=== PATIENT | male | born 1930 | race Caucasian/White ===

== ENCOUNTER 2016-12-23 09:25 | Inpatient (IN) ==
[2016-12-18 14:32] LABS: Basophils # (Auto) 0 K/mcL (0.0-0.3); Basophils % (Auto) 0.5 % (0.0-2.0); Eosinophils # (Auto) 0.2 K/mcL (0.0-0.7); Granulocytes % (Auto) 56.9 % (38.0-78.0); Lymphocytes # (Auto) 2.2 K/mcL (1.5-4.8); Lymphocytes % (Auto) 30.4 % (15.5-49.0); Mean Cell Volume 94.3 fL (80.0-100.0); Mean Corpuscular HGB Conc 33.8 g/dL (31.0-36.0); Mean Corpuscular Hemoglobin 31.9 pg (26.0-34.0); Monocytes # (Auto) 0.7 K/mcL (0.1-0.9); Monocytes % (Auto) 9.2 % (1.0-12.0); Platelet Count 184 K/mcL (140-440); Red Cell Distribution Width 13.7 % (11.5-14.5)
[2016-12-18 14:49] LABS: Blood Urea Nitrogen 20 mg/dl (8-23)
[2016-12-18 15:57] LABS: Appearance,Urine CLEAR; Bilirubin,Urine NEG (NEG); Color,Urine YELLOW; Glucose,Urine (UA) NEGATIVE (NEG); Leukocyte Esterase,Urine NEG /uL (NEG); Nitrate,Urine NEG (NEG); Protein,Urine NEG (NEG); Specific Gravity,Urine 1.015 (1.000-1.035); Urine Blood NEG mg/dL (<0.03); Urobilinogen,Urine NEG (NEG)
[~2016-12-23 09:25] MED LIST: ACETAMINOPHEN 500 MG TABLET PO SCH; CELECOXIB 200 MG CAPSULE PO SCH; KETOROLAC 30 MG, ROPIVACAINE HCL/PF 49.5 ML, EPINEPHrine 0.5 MG, 0.9 % SODIUM CHLORIDE ... IJ SCH; PREGABALIN 75 MG CAPSULE PO SCH; ceFAZolin 1 GM VIAL IV SCH; oxyCODONE 10 MG TAB.ER.12H PO SCH
[2016-12-23] MEDS ORDERED: PROPOFOL 200 MG/20 ML VIAL IV ONE (11:00)
[2016-12-23] MEDS ORDERED: GLYCOPYRROLATE 0.2 MG/ML VIAL IV ONE (11:00)
[2016-12-23] MEDS ORDERED: PHENYLEPHRINE 10 MG/ML VIAL IV ONE (11:00)
[2016-12-23] MEDS ORDERED: MIDAZOLAM 2 MG/2 ML VIAL IV ONE (11:00)
[2016-12-23] MEDS ORDERED: DEXAMETHASONE 10 MG/ML VIAL IV ONE (11:00)
[2016-12-23] MEDS ORDERED: ONDANSETRON 4 MG/2 ML VIAL IV ONE (11:00)
[2016-12-23] MEDS ORDERED: ROPIVACAINE HCL/PF 20 ML VIAL IJ ONE (11:00)
[2016-12-23] MEDS ORDERED: fentaNYL 100 MCG/2 ML VIAL IV ONE (11:00)
[2016-12-23] MEDS ORDERED: LIDOCAINE HCL/PF 100 MG/5 ML SYRINGE IV ONE (11:00)
[2016-12-23] MEDS ORDERED: TRANEXAMIC ACID 1,000 MG/10 ML VIAL IV ONE ×2 (11:00→13:02)
[2016-12-23] MEDS ORDERED: GENTAMICIN SULFATE 800 MG/20 ML VIAL IR ONE (12:00)
[2016-12-23] MEDS ORDERED: FLUMAZENIL 0.1 MG/ML ML IV PRN (12:26)
[2016-12-23] MEDS ORDERED: HYDROmorphone 2 MG/ML SYRINGE IV PRN ×2 (12:26→13:02)
[2016-12-23] MEDS ORDERED: MEPERIDINE 25 MG/ML SYRINGE IV PRN (12:26)
[2016-12-23] MEDS ORDERED: BENZOCAINE/MENTHOL 1 LOZENGE PO PRN ×2 (12:26→13:02)
[2016-12-23] MEDS ORDERED: ePHEDrine 50 MG/ML AMPUL IV PRN (12:26)
[2016-12-23] MEDS ORDERED: METOPROLOL TARTRATE 5 MG/5 ML VIAL IV PRN (12:26)
[2016-12-23] MEDS ORDERED: IPRATROPIUM/ALBUTEROL 3 ML AMPUL.NEB NEB PRN (12:26)
[2016-12-23] MEDS ORDERED: METHOCARBAMOL 1,000 MG/10 ML VIAL IV PRN (12:26)
[2016-12-23] MEDS ORDERED: PROMETHAZINE 25 MG/ML VIAL IV PRN (12:26)
[2016-12-23] MEDS ORDERED: ATROPINE SULFATE 0.4 MG/ML VIAL IV PRN (12:26)
[2016-12-23] MEDS ORDERED: NALOXONE HCL 0.4 MG/ML VIAL IV PRN (12:26)
[2016-12-23] MEDS ORDERED: ONDANSETRON 4 MG/2 ML VIAL IV PRN ×2 (12:26→13:02)
[2016-12-23] MEDS ORDERED: diphenhydrAMINE 50 MG/ML VIAL IV PRN (12:26)
[2016-12-23] MEDS ORDERED: LACTATED RINGERS 1,000 ML IV SCH (12:30)
--- NOTE | 2016-12-23 12:54 | Brief Operative Note ---
Date of procedure: 12/23/16 Pre-op diagnosis: Left knee djd Post-op diagnosis: same Procedure: Left knee tka Grafts/Implants: Yes Anesthesia: GETA Complications: none Complications Description: 12/23/16 12:52 none Surgeon: Pankaj Fleming Consulting Hr Professional: Phan Yin Estimated blood loss (cc): 50 Tourniquet Time (Minutes): 54 Specimens Removed/Pathology: none sent Condition: stable Disposition: PACU
[2016-12-23] MEDS ORDERED: BISACODYL 10 MG SUPP.RECT PR PRN (13:02)
[2016-12-23] MEDS ORDERED: POLYETHYLENE GLYCOL 3350 17 GM PACKET PO PRN (13:02)
[2016-12-23] MEDS ORDERED: MAGNESIUM HYDROXIDE 30 ML ORAL.SUSP PO PRN (13:02)
[2016-12-23] MEDS ORDERED: FLEETS ADULT ENEMA PR PRN (13:02)
[2016-12-23] MEDS ORDERED: ACETAMINOPHEN 325 MG TABLET PO PRN (13:02)
[2016-12-23] MEDS ORDERED: HYDROcodone/APAP 10/325MG TABLET PO PRN (13:02)
[2016-12-23] MEDS ORDERED: TEMAZEPAM 15 MG CAPSULE PO PRN (13:02)
[2016-12-23] MEDS: fentaNYL 100 MCG/2 ML VIAL IV PRN ×2 (13:20→13:36)
--- NOTE | 2016-12-23 13:37 | XRay Report ---
CLINICAL INFORMATION: Postop total knee prostheses COMPARISON: None. FINDINGS: Total knee prostheses is anatomically aligned. No significant osseous abnormality. Small effusion seen in the patellofemoral joint and there is periarticular soft tissue swelling IMPRESSION: Negative Interpreted and Authenticated by: Alexei Segovia 12/23/16
[2016-12-23] MEDS: 0.9 % SODIUM CHLORIDE 10 ML SYRINGE IV SCH (14:14)
--- NOTE | 2016-12-23 14:51 | Operative Note ---
DATE OF OPERATION: 12/23/2016 PREOPERATIVE DIAGNOSIS: Left knee degenerative arthritis, severe. POSTOPERATIVE DIAGNOSIS: Left knee degenerative arthritis, severe. PROCEDURE: Left total knee arthroplasty using the GUY robot. SURGEON: Pankaj Fleming M.D. NUT GRADER: Phan Yin PA-C. ANESTHESIA: General LMA anesthesia. COMPLICATIONS: None. TOURNIQUET TIME: 54 minutes. ESTIMATED BLOOD LOSS: About 50 mL. IMPLANTS: A size 4 femur, size 4 tibial baseplate with a 36 mm patellar button and an 11 mm poly insert. DESCRIPTION OF PROCEDURE: The patient was brought to the operating room and put to sleep with general LMA anesthesia. Once asleep, the patient had the left leg sterilely prepped and draped in the usual sterile fashion. I exsanguinated the leg and inflated the tourniquet to 250 pounds of pressure and then made a midline incision. A mid vastus approach was performed. Once the mid vastus approach had been performed, I then identified the knee with severe arthritis throughout all three compartments. At this point, we then put pins above and below the knee. We registered thirty points in the knee, registered center of hip rotation, registered medial and lateral malleolus, registered the femoral and tibial pins. We balanced the knee and measured the knee prior to any cuts. He had about a negative 12 degree extension or 12 degree flexion contracture. At this point after balancing the total knee, both flexion and extension, we then brought in the robot. This was registered, and we made our distal femoral cuts, posterior chamfer cuts. We re-registered with the new saw blade and made our posterior, anterior and anterior chamfer cuts. The tibial cut was then made after registering the robot with the tibial pin. Once this was done, bony fragments were removed. We then removed the remnants of the meniscus and large spurs posteriorly and large loose bodies in the lateral recess. Spurs had all been removed. At this point, we then trialed the components. A size 4 tibial baseplate with rotation set by the robot, as well as a size 4 femur, 11 mm poly, had 0 degrees extension and anatomic alignment. We then prepared the patella. It measured a total thickness of 20 mm. This was cut to 14 mm and then placed a 36 mm patellar button. This tracked very nicely. Full range of motion. We irrigated thoroughly and cemented into place the above-mentioned sizes, 11 mm poly, 36 mm patellar button. We then placed the knee at 45 degrees until bleeding had stopped and the cement had dried. We then did one final irrigation. We then closed the mid vastus approach with a #1 Stratafix x2. We closed the skin with 2-0 Vicryl and eladia superficially. The patient tolerated this well. There was no complication. RBH:dorian Job ID: [id number] Doc ID: [id number] Pankaj Fleming MD
[2016-12-23] MEDS: 0.45 % SODIUM CHLORIDE 1,000 ML IV SCH (14:56)
[2016-12-23] MEDS: KETOROLAC 15 MG/ML VIAL IV SCH (18:27)
[2016-12-23] MEDS: SIMVASTATIN 20 MG TABLET PO SCH (19:37)
[2016-12-23] MEDS: ASPIRIN 325 MG ENTERIC COATED TABLET PO SCH (19:37)
[2016-12-23] MEDS: DOCUSATE SODIUM 100 MG CAPSULE PO SCH (19:37)
[2016-12-23] MEDS: SENNOSIDES 1 TABLET PO SCH (19:37)
[2016-12-24] MEDS: KETOROLAC 15 MG/ML VIAL IV SCH ×4 (00:30→18:10)
[2016-12-24] MEDS: 0.9 % SODIUM CHLORIDE 10 ML SYRINGE IV SCH ×4 (00:30→20:07)
[2016-12-24] MEDS: 0.45 % SODIUM CHLORIDE 1,000 ML IV SCH (03:21)
--- NOTE | 2016-12-24 07:31 | Orthopedic Progress Note ---
Subjective Patient information: Note initiated : 12/24/16 at 7:30 am Service Date, if different from initiated Date: [] Patient: Noel Dee 86 y/o M admitted on 12/23/16 for Left Total Knee Arhtroplasty with [employer] Robot. Chief Complaint: [Pt is stable this morning on post operative day 1 without any significant concerns or complaints. Patients vital signs have remained stable. Patients dressing is dry and exhibits a grossly intact neurovascular and neuromotor exam. Patients 10 point ROS is otherwise negative. ] Objective Vital signs: Vital Signs Temp Pulse Resp BP BP Pulse Ox 12/24/16 07:27 98.6 F 12 115/57 93 12/24/16 06:45 16 92 12/24/16 04:00 98.2 F 67 12 118/57 90 12/24/16 03:00 93 12/24/16 00:00 98.3 F 68 12 137/70 92 12/23/16 20:00 97.6 F 69 12 121/66 94 12/23/16 19:42 94 12/23/16 17:05 96 12/23/16 16:45 154/73 96 12/23/16 15:45 127/69 94 12/23/16 15:15 129/69 96 12/23/16 14:45 152/74 95 12/23/16 14:30 156/86 95 12/23/16 14:15 16 162/85 92 12/23/16 14:00 97.5 F 175/80 94 12/23/16 13:56 97.4 F 64 12 148/69 96 12/23/16 13:40 64 12 150/62 96 12/23/16 13:25 65 11 L 155/61 96 12/23/16 13:10 67 14 152/42 100 12/23/16 12:57 97.2 F 71 16 121/72 100 12/23/16 09:25 97.0 F 83 16 136/87 96 Intake and Output 12/23/16 12/24/16 12/24/16 21:59 05:59 13:59 Intake Total 240 / 240 500 / 500 Output Total 425 / 425 551 / 551 Balance -185 / -185 -51 / -51 Intake: Oral 240 / 240 500 / 500 Output: Void Amount 425 / 425 550 / 550 # of times incontinent of urine Other: Meal Dinner Percent of Meal Consumed 100% Feeding Ability Independent Weight 160 lb 8 oz Intake & Output: Intake & Output 12/23/16 12/24/16 12/24/16 21:59 05:59 13:59 Intake Total 240 / 240 500 / 500 Output Total 425 / 425 551 / 551 Balance -185 / -185 -51 / -51 Weight 160 lb 8 oz Intake: Oral 240 / 240 500 / 500 Output: Void Amount 425 / 425 550 / 550 # of times incontinent of urine Other: Meal Dinner Percent of Meal Consumed 100% Feeding Ability Independent Incision: Yes healing Incision clean and dry: Yes Dressing: Yes clean Weight bearing status: full Neurological exam IM: Yes motor sensory intact, Yes neurovascular intact Extremities exam IM: Yes Foot pink and warm, Yes neurovascular intact - Labs CBC & BMP: 12/24/16 04:45 12/18/16 12:19 Labs: Orthopedic Labs 12/18/16 12:19 PT 12.8 INR 0.9 APTT 31 12/24/16 12/18/16 04:45 12:19 Hgb 14.6 Hct 33.3 L 43.4
--- NOTE | 2016-12-24 07:34 | Discharge Summary ---
Ortho Discharge - TKA - Patient Instructions Diet: Regular Diet Activity: activity as tolerated, weight bearing as tolerated Total Knee Protocol: For Total Knee: Start ROM TORI with stationary bike or rocking chair. Work on gaining full extension of knee. Posterior dislocation precautions provided. Hip abductor strengthening and gait training instructions provided. Apply Cryocuff as instructed. Dressing Care: May shower in 2 days, Aquacel Ag - leave on for 5 days Patient Education: Total Knee Replacement (DC) Additional Instructions: CPM for home use - Follow Up Plan Follow Up Appointments: Phan Yin PA-C [Physician Religious Education Coordinator] - 01/07/17 10:50 am () Disposition: Home, Self-Care Prognosis: Good Rehab Potential: Good I certify that the patient requires SNF services: No Overall status at discharge: patient is progressing back to baseline - Orders For Discharge Prescriptions: Aspirin [Ecotrin] 325 mg PO BID #60 tab.ec Docusate Sodium [Colace] 100 mg PO BID #60 cap HYDROcodone/APAP 10/325MG [[place] 10/325Mg] 1 - 2 tab PO Q4HP PRN #75 tab PRN Reason: Pain
[2016-12-24] MEDS: CALCIUM (OYSTER SHELL) 500 MG TABLET PO SCH (08:29)
[2016-12-24] MEDS: ASPIRIN 325 MG ENTERIC COATED TABLET PO SCH ×2 (08:29→20:06)
[2016-12-24] MEDS: LISINOPRIL 10 MG TABLET PO SCH (08:29)
[2016-12-24] MEDS: DOCUSATE SODIUM 100 MG CAPSULE PO SCH ×2 (08:29→21:07)
[2016-12-24] MEDS: VITAMIN D3 1,000 UNIT TABLET PO SCH (08:30)
[2016-12-24] MEDS: GLUCOSAMINE HCL 1500 MG PO SCH (08:30)
[2016-12-24] MEDS: MULTIVIT,THER IRON,CA,FA & MIN 1 TABLET PO SCH (08:30)
[2016-12-24] MEDS: HYDROCHLOROTHIAZIDE 12.5 MG CAPSULE PO SCH (08:30)
[2016-12-24] MEDS: SIMVASTATIN 20 MG TABLET PO SCH (20:06)
[2016-12-24] MEDS: SENNOSIDES 1 TABLET PO SCH (20:07)
[2016-12-25] MEDS: KETOROLAC 15 MG/ML VIAL IV SCH ×3 (00:11→11:54)
[2016-12-25] MEDS: 0.9 % SODIUM CHLORIDE 10 ML SYRINGE IV SCH (06:44)
[2016-12-25] MEDS: MULTIVIT,THER IRON,CA,FA & MIN 1 TABLET PO SCH (08:16)
[2016-12-25] MEDS: HYDROCHLOROTHIAZIDE 12.5 MG CAPSULE PO SCH (08:16)
[2016-12-25] MEDS: DOCUSATE SODIUM 100 MG CAPSULE PO SCH (08:16)
[2016-12-25] MEDS: ASPIRIN 325 MG ENTERIC COATED TABLET PO SCH (08:16)
[2016-12-25] MEDS: VITAMIN D3 1,000 UNIT TABLET PO SCH (08:16)
[2016-12-25] MEDS: LISINOPRIL 10 MG TABLET PO SCH (08:16)
[2016-12-25] MEDS: CALCIUM (OYSTER SHELL) 500 MG TABLET PO SCH (08:17)
[2016-12-25] MEDS: GLUCOSAMINE HCL 1500 MG PO SCH (08:24)
[2016-12-25] MEDS ORDERED: ASPIRIN 81 MG TAB.CHEW PO SCH (09:00)
== END 2016-12-25 13:25 | disposition home or self-care (01) | DRG 470 ==
LOC: MEDSUR 09:25
PROVIDERS: ADMIT Orthopaedic Surgery; ATTEND Orthopaedic Surgery

== ENCOUNTER 2017-04-28 04:32 | Inpatient (IN) ==
[2017-04-22 18:42] LABS: Appearance,Urine CLEAR; Bilirubin,Urine NEG (NEG); Color,Urine YELLOW; Glucose,Urine (UA) NEGATIVE (NEG); Leukocyte Esterase,Urine NEG /uL (NEG); Protein,Urine NEG (NEG); Specific Gravity,Urine 1.019 (1.000-1.035); Urine Blood NEG mg/dL (<0.03); Urobilinogen,Urine NEG (NEG)
[2017-04-22 19:10] LABS: Basophils # (Auto) 0 K/mcL (0.0-0.3); Basophils % (Auto) 0.5 % (0.0-2.0); Eosinophils # (Auto) 0.3 K/mcL (0.0-0.7); Eosinophils % (Auto) 4.3 % (0.0-7.0); Granulocytes % (Auto) 56.1 % (38.0-78.0); Lymphocytes # (Auto) 2.2 K/mcL (1.5-4.8); Lymphocytes % (Auto) 32.3 % (15.5-49.0); Mean Cell Volume 92.8 fL (80.0-100.0); Mean Corpuscular HGB Conc 34.3 g/dL (31.0-36.0); Mean Corpuscular Hemoglobin 31.9 pg (26.0-34.0); Monocytes # (Auto) 0.5 K/mcL (0.1-0.9); Monocytes % (Auto) 6.8 % (1.0-12.0); Platelet Count 184 K/mcL (140-440); RBC 4.67 M/mcL (4.50-5.90); Red Cell Distribution Width 15.2 % (11.5-14.5)
[2017-04-22 19:41] LABS: Blood Urea Nitrogen 21 mg/dl (8-23)
[2017-04-28] MEDS ORDERED: CELECOXIB 200 MG CAPSULE PO SCH (05:00)
[2017-04-28] MEDS ORDERED: ACETAMINOPHEN 500 MG TABLET PO SCH (05:00)
[2017-04-28] MEDS ORDERED: PREGABALIN 75 MG CAPSULE PO SCH (05:00)
[2017-04-28] MEDS ORDERED: oxyCODONE 10 MG TAB.ER.12H PO SCH (05:00)
[2017-04-28] MEDS ORDERED: ceFAZolin 1 GM VIAL IV SCH (05:00)
[2017-04-28] MEDS ORDERED: KETOROLAC 30 MG, ROPIVACAINE HCL/PF 49.5 ML, EPINEPHrine 0.5 MG, 0.9 % SODIUM CHLORIDE ... IJ SCH (06:30)
[2017-04-28] MEDS ORDERED: MIDAZOLAM 2 MG/2 ML VIAL IV ONE (07:45)
[2017-04-28] MEDS ORDERED: TRANEXAMIC ACID 1,000 MG/10 ML VIAL IV ONE ×2 (07:45→09:06)
[2017-04-28] MEDS ORDERED: ROPIVACAINE HCL/PF 20 ML VIAL IJ ONE (07:45)
[2017-04-28] MEDS ORDERED: LIDOCAINE HCL/PF 100 MG/5 ML SYRINGE IV ONE (07:45)
[2017-04-28] MEDS ORDERED: DEXAMETHASONE 10 MG/ML VIAL IV ONE (07:45)
[2017-04-28] MEDS ORDERED: ePHEDrine 50 MG/ML AMPUL IV ONE (07:45)
[2017-04-28] MEDS ORDERED: ONDANSETRON 4 MG/2 ML VIAL IV ONE (07:45)
[2017-04-28] MEDS ORDERED: PROPOFOL 200 MG/20 ML VIAL IV ONE (07:45)
[2017-04-28] MEDS ORDERED: GENTAMICIN SULFATE 800 MG/20 ML VIAL IR ONE (08:34)
[2017-04-28] MEDS ORDERED: BENZOCAINE/MENTHOL 1 LOZENGE PO PRN ×2 (08:38→09:06)
[2017-04-28] MEDS ORDERED: MEPERIDINE 25 MG/ML SYRINGE IV PRN (08:38)
[2017-04-28] MEDS ORDERED: FLUMAZENIL 0.1 MG/ML ML IV PRN (08:38)
[2017-04-28] MEDS ORDERED: ONDANSETRON 4 MG/2 ML VIAL IV PRN ×2 (08:38→09:06)
[2017-04-28] MEDS ORDERED: NALOXONE HCL 0.4 MG/ML VIAL IV PRN (08:38)
[2017-04-28] MEDS ORDERED: fentaNYL 100 MCG/2 ML VIAL IV PRN (08:38)
[2017-04-28] MEDS ORDERED: LACTATED RINGERS 250 ML IV PRN (08:38)
[2017-04-28] MEDS ORDERED: PROMETHAZINE 25 MG/ML VIAL IV PRN (08:38)
[2017-04-28] MEDS ORDERED: diphenhydrAMINE 50 MG/ML VIAL IV PRN (08:38)
[2017-04-28] MEDS ORDERED: IPRATROPIUM/ALBUTEROL 3 ML AMPUL.NEB NEB PRN (08:38)
[2017-04-28] MEDS ORDERED: LACTATED RINGERS 1,000 ML IV SCH (08:45)
[2017-04-28] MEDS ORDERED: ACETAMINOPHEN 325 MG TABLET PO PRN (09:06)
[2017-04-28] MEDS ORDERED: TEMAZEPAM 15 MG CAPSULE PO PRN (09:06)
[2017-04-28] MEDS ORDERED: BISACODYL 10 MG SUPP.RECT PR PRN (09:06)
[2017-04-28] MEDS ORDERED: FLEETS ADULT ENEMA PR PRN (09:06)
[2017-04-28] MEDS ORDERED: MAGNESIUM HYDROXIDE 30 ML ORAL.SUSP PO PRN (09:06)
[2017-04-28] MEDS ORDERED: HYDROmorphone 2 MG/ML VIAL IV PRN (09:06)
[2017-04-28] MEDS ORDERED: POLYETHYLENE GLYCOL 3350 17 GM PACKET PO PRN (09:06)
[2017-04-28] MEDS ORDERED: HYDROcodone/APAP 10/325MG TABLET PO PRN (09:06)
--- NOTE | 2017-04-28 09:06 | Brief Operative Note ---
Date of procedure: 04/28/17 Pre-op diagnosis: right knee djd Post-op diagnosis: same Procedure: right tka with robotics Grafts/Implants: Yes Anesthesia: GETA Findings: none Surgeon: Pankaj Fleming Strainer Cleaner: Phan Yin Tourniquet Time (Minutes): 20 Specimens Removed/Pathology: none sent Condition: stable Disposition: PACU
--- NOTE | 2017-04-28 09:52 | XRay Report ---
HISTORY: Reason for Exam:Post-Op Total Knee FINDINGS: There is a well positioned total knee prosthesis. No fracture is present. There is a moderate size exostosis arising from the medial femoral epicondyle. Large dystrophic soft tissue calcifications are again seen in the popliteal fossa. These have enlarged since 05/30/16. Largest measures 6.2 cm in length. IMPRESSION: Well-positioned knee prosthesis Interpreted and Authenticated by: Agustin Chavez 04/28/17
[2017-04-28] MEDS: 0.45 % SODIUM CHLORIDE 1,000 ML IV SCH ×2 (11:38→19:30)
[2017-04-28] MEDS: KETOROLAC 15 MG/ML VIAL IV SCH ×3 (14:38→23:55)
--- NOTE | 2017-04-28 16:22 | Operative Note ---
DATE OF OPERATION: 04/28/2017 PREOPERATIVE DIAGNOSIS: Right knee degenerative arthritis. POSTOPERATIVE DIAGNOSIS: Right knee degenerative arthritis. This was so severe of arthritis with loose bodies. PROCEDURE: Right total knee arthroplasty using the [employer] robot. SURGEON: Paknaj Fleming M.D. PAYABLE REPRESENTATIVE: Phan Yin PA-C. ANESTHESIA: General LMA anesthesia. COMPLICATIONS: None. DESCRIPTION OF PROCEDURE: The patient was brought to the operating room and put to sleep with general LMA anesthesia. Once asleep, the patient had the right leg sterilely prepped and draped in the usual sterile fashion. Timeout performed and confirmed this as the operative site. Once done, preop antibiotics had been given. Tranexamic acid was given. We made a midline incision, a midvastus approach performed. This showed so severe of arthritis. There were grooves in the lateral femoral condyle and the patella. The patella had been thinned to about 13 mm. At this point, we proceeded with a total knee arthroplasty. Two pins above and below the knee. We registered the hip center of rotation, medial and lateral malleoli, and thirty points on the femur and the tibia. Intra-articular pins were registered. Once done, we then brought in the robot and made the cuts according to the balancing of the knee. Once all these cuts were done, bony fragments were removed, meniscus remnants removed, and spurs posteriorly removed. We punched into place, setting rotation of the tibial component. The femoral component lateralized as far as we could and then prepared the patella. The patella measured 13 to 14 mm at its thinnest. We cut this to the very minimum which was 14 mm and then resurfaced this with a 36 mm patellar button. All these components were cemented into place. Excess cement was removed. We rebalanced the knee so the patient could gain full extension as he had a small flexion contracture starting the case. We irrigated thoroughly. Once perfectly balanced, we closed the midvastus approach with #1 Stratafix x2 sutures. We closed the skin with 2-0 Vicryl and adhesive closure. The patient tolerated this well. Tourniquet time was approximately 45 minutes. RBH:dorian Job ID: [id number] Doc ID: [id number] Pankaj Fleming MD
[2017-04-28] MEDS: ceFAZolin 1 GM VIAL IV SCH (18:47)
[2017-04-28] MEDS: FERROUS SULFATE 325 MG TABLET PO SCH (18:57)
[2017-04-28] MEDS: 0.9 % SODIUM CHLORIDE 10 ML SYRINGE IV SCH ×2 (19:01→23:56)
[2017-04-28] MEDS: ASPIRIN 325 MG ENTERIC COATED TABLET PO SCH (20:43)
[2017-04-28] MEDS: DOCUSATE SODIUM 100 MG CAPSULE PO SCH (20:45)
[2017-04-28] MEDS ORDERED: SENNOSIDES 1 TABLET PO SCH (21:00)
[2017-04-28] MEDS ORDERED: SIMVASTATIN 20 MG TABLET PO SCH (21:00)
[2017-04-29] MEDS ORDERED: ceFAZolin 1 GM VIAL ONE (02:28)
[2017-04-29] MEDS: ceFAZolin 1 GM VIAL IV SCH (02:53)
[2017-04-29] MEDS: 0.9 % SODIUM CHLORIDE 10 ML SYRINGE IV SCH (05:58)
[2017-04-29] MEDS: KETOROLAC 15 MG/ML VIAL IV SCH ×2 (05:58→14:53)
--- NOTE | 2017-04-29 07:35 | Orthopedic Progress Note ---
Subjective Patient information: Note initiated : 04/29/17 at 7:34 am Service Date, if different from initiated Date: [] Patient: Noel Dee 86 y/o M admitted on 04/28/17 for Right Total Knee Arthroplasty. Chief Complaint: [Pt is stable this morning on post operative day 1 without any significant concerns or complaints. Patients vital signs have remained stable. Patients dressing is dry and is grossly instact from a neurovascular and motor standpoint. Patients 10 point ROS is otherwise negative. ] Objective Vital signs: Vital Signs Temp Pulse Resp BP Pulse Ox 04/29/17 04:00 98.1 F 58 L 18 123/65 92 04/29/17 00:00 98.4 F 66 18 113/62 96 04/28/17 20:00 97.6 F 88 18 110/69 94 04/28/17 15:34 97.8 F 16 135/67 95 04/28/17 13:07 97 04/28/17 11:52 138/63 94 04/28/17 11:23 145/74 95 04/28/17 10:53 154/74 98 04/28/17 10:38 159/77 99 04/28/17 10:24 126/71 99 04/28/17 10:08 150/78 95 04/28/17 10:00 96.6 F L 57 L 10 L 156/61 98 04/28/17 09:52 96.8 F L 67 17 125/60 99 04/28/17 09:37 97.0 F 64 20 126/63 96 04/28/17 09:32 76 14 136/71 2 L 04/28/17 09:27 80 16 142/73 99 04/28/17 09:22 97.3 F 78 16 135/69 98 Intake and Output 04/28/17 04/29/17 04/29/17 21:59 05:59 13:59 Intake Total 1152 / 1152 220 / 220 Output Total 475 / 475 400 / 400 Balance 677 / 677 -180 / -180 Intake: IV 912 / 912 Sodium Chloride 0.45% 1,000 ml 912 / 912 @ 100 mls/hr IV .Q10H [facility] Rx#: [id number] Oral 240 / 240 220 / 220 Output: Void Amount 475 / 475 400 / 400 Other: Meal Dinner Percent of Meal Consumed 75% Feeding Ability Independent Weight 159 lb 8 oz Intake & Output: Intake & Output 04/28/17 04/29/17 04/29/17 21:59 05:59 13:59 Intake Total 1152 / 1152 220 / 220 Output Total 475 / 475 400 / 400 Balance 677 / 677 -180 / -180 Weight 159 lb 8 oz Intake: IV 912 / 912 Sodium Chloride 0.45% 1,000 ml 912 / 912 @ 100 mls/hr IV .Q10H [facility] Rx#: [id number] Oral 240 / 240 220 / 220 Output: Void Amount 475 / 475 400 / 400 Other: Meal Dinner Percent of Meal Consumed 75% Feeding Ability Independent Incision: Yes healing Incision clean and dry: Yes Dressing: Yes clean, Yes dry Weight bearing status: full Neurological exam IM: Yes motor sensory intact, Yes neurovascular intact Extremities exam IM: Yes Foot pink and warm, Yes neurovascular intact - Labs CBC & BMP: 04/29/17 04:54 04/22/17 16:40 Labs: Orthopedic Labs 04/22/17 16:40 PT 12.9 INR 1.0 APTT 31 04/29/17 04/22/17 04:54 16:40 Hgb 14.9 Hct 33.9 L 43.4 Assessment and Plan (1) Hx of total knee arthroplasty The patient has been educated regarding dressing care, Physical Therapy recommendations, home exercises, restrictions, and follow up appointments. The patient has had all necessary DME prescribed. The patient has remained stable during their hospital course. The patient was discharge with a stable exam. Status: Acute
--- NOTE | 2017-04-29 07:38 | Discharge Summary ---
Ortho Discharge - TKA - Patient Instructions Diet: Regular Diet Activity: activity as tolerated, weight bearing as tolerated Total Knee Protocol: For Total Knee: Start ROM TORI with stationary bike or rocking chair. Work on gaining full extension of knee. Posterior dislocation precautions provided. Hip abductor strengthening and gait training instructions provided. Apply Cryocuff as instructed. Dressing Care: May shower in 2 days Patient Education: Total Knee Replacement (DC) Additional Instructions: CMP for home use. - Problem Maintenance (1) Hx of total knee arthroplasty Status: Acute - Follow Up Plan Follow Up Appointments: Phan Yin PA-C [Physician Barrel Assembler Helper] - 05/13/17 8:40 am Disposition: Home, Self-Care Prognosis: Good Rehab Potential: Good I certify that the patient requires SNF services: No Overall status at discharge: patient is progressing back to baseline - Orders For Discharge Prescriptions: Aspirin [Ecotrin] 325 mg PO BID #60 tab.ec Docusate Sodium [Colace] 100 mg PO BID #60 cap HYDROcodone/APAP 10/325MG [[place] 10-325Mg] 1 - 2 tab PO Q4HP PRN #75 tab PRN Reason: Pain Level 3-6
[2017-04-29] MEDS ORDERED: LISINOPRIL 10 MG TABLET PO SCH (09:00)
[2017-04-29] MEDS ORDERED: HYDROCHLOROTHIAZIDE 12.5 MG CAPSULE PO SCH (09:00)
[2017-04-29] MEDS ORDERED: CALCIUM (OYSTER SHELL) 500 MG TABLET PO SCH (09:00)
[2017-04-29] MEDS ORDERED: MULTIVIT,THER IRON,CA,FA & MIN 1 TABLET PO SCH (09:00)
[2017-04-29] MEDS ORDERED: VITAMIN D3 1,000 UNIT TABLET PO SCH (09:00)
[2017-04-29] MEDS: ASPIRIN 325 MG ENTERIC COATED TABLET PO SCH (09:11)
[2017-04-29] MEDS: DOCUSATE SODIUM 100 MG CAPSULE PO SCH (09:11)
[2017-04-29] MEDS: FERROUS SULFATE 325 MG TABLET PO SCH (09:11)
[2017-04-30] MEDS ORDERED: ASPIRIN 81 MG TAB.CHEW PO SCH (09:00)
== END 2017-04-29 15:15 | disposition home or self-care (01) | DRG 470 ==
LOC: MEDSUROUT 04:32 → MEDSUR 04:32 → EDSTATUS 07:30
PROVIDERS: ADMIT Orthopaedic Surgery; ATTEND Orthopaedic Surgery

== ENCOUNTER 2017-07-06 15:09 | Inpatient (IN) ==
--- NOTE | 2017-07-06 15:45 | Emergency Department Note ---
Fall HPI - General Chief Complaint: Extremity Injury, Lower Stated Complaint: fall, R leg pain, possible deform Time Seen by Provider: 07/06/17 15:32 Source: patient Mode of arrival: EMS - History of Present Illness HPI Narrative: Patient was on the driveway he states he was backing up and fell he just had a knee replacement on the right one month ago by Dr. Lara on 04/28 complain about pain superior to that the knee replacement. Brought in by ambulance as patient is complaining about pain to the right distal femur no pain in the hip pulses are 2+ equal strong normal sensation pain is rated initially as a 10/10 but is not requesting anything for pain at this time as he was given some fentanyl in the ambulance his pulse is 77 the blood pressure is 166 systolically - Related Data Home Medications Medication Instructions Recorded Confirmed calcium citrate 200 mg (950 mg) 500 mg PO QDAY tab 04/25/16 07/06/17 tablet cholecalciferol (vitamin D3) 1,000 1,000 unit PO DAILY 04/25/16 07/06/17 unit capsule multivitamin tablet 1 tab-cap PO QDAY 04/25/16 07/06/17 Aspirin 81 mg PO MOWEFR@0900 tab 05/30/16 07/06/17 enzalutamide 40 mg capsule 80 mg PO QDAY cap 08/12/16 07/06/17 Ferrous Sulfate 325 mg PO BIDCC 04/22/17 07/06/17 Previous Rx's Medication Instructions Recorded hydrochlorothiazide 12.5 mg tablet 12.5 mg PO QDAY 90 Days #90 tab 08/12/16 lisinopril 10 mg tablet 10 mg PO QDAY #90 tab 04/08/17 HYDROcodone/APAP 10/325MG [[place] 1 - 2 tab PO Q4HP PRN #75 tab 04/29/17 10-325Mg] simvastatin 20 mg tablet 20 mg PO QPM #90 tab 05/27/17 Allergies Allergy/AdvReac Type Severity Reaction Status Date / Time Amoxicillin AdvReac Mild Rash Verified 07/06/17 15:14 Review of Systems All systems ED: reviewed and negative except as stated. Musculoskeletal: Reports: as per HPI, other (PAINInto the right femur) Fall PMH - Past Medical History Medical history: Reports: hyperlipidemia, hypertension Surgical history ED: Reports: other (Prostate surgery lateral knee replacements) Family history: Reports: no significant family history - Social History smoking status: Former smoker Alcohol use: Reports: Occasionally Drug use: Reports: none Physical Exam Limitations: no limitations General appearance: alert Head: atraumatic Eye: Present: normal appearance. Absent: PERRL, EOMI ENT: normal exam, normal oropharynx Neck: Present: normal inspection, full ROM. Absent: trachea midline Chest: Present: normal inspection, symmetric chest wall rise. Absent: tenderness Respiratory: Present: normal lung sounds bilaterally. Absent: respiratory distress, wheezes, stridor Cardiovascular: Present: regular rate, normal rhythm. Absent: bradycardia, tachycardia Abdominal: Present: soft, distention. Absent: tenderness, guarding Extremities: Present: normal inspection Hip/Pelvis: Present: normal inspection, full ROM. Absent: tenderness Upper leg: Present: tenderness, swelling. Absent: full ROM Knee: Present: other (Total knee 1 month ago) Lower leg: Present: normal inspection, full ROM. Absent: tenderness Ankle: Present: normal inspection, full ROM. Absent: tenderness Back: Present: full ROM Neurological: Present: alert, oriented X3, CN II-XII intact Psychiatric: Present: normal affect, normal mood Course Vital Signs Temperature 98.4 F 07/06/17 15:10 Pulse Rate 77 07/06/17 15:10 Respiratory Rate 16 07/06/17 15:10 Blood Pressure 164/88 07/06/17 15:10 Pulse Oximetry (%) 94 07/06/17 15:10 Temperature 98.4 F 07/06/17 15:10 Pulse Rate 81 07/06/17 16:41 Respiratory Rate 20 07/06/17 16:21 Blood Pressure 139/99 07/06/17 16:41 Pulse Oximetry (%) 93 07/06/17 16:41 Fall - [facility] Narrative Medical decision making narrative: Reveal a spiral fracture of the distal femur 2+ equal and strong Marco orthopedic doctor beverage inspection machine tender has been contacted he is reviewing the x-rays at this time Dr. Lara would like to have the patient admitted to hospice has been contacted Dr. Perez will evaluate the patient . pt to be admitted. - Lab Data Result diagrams: 07/06/17 15:23 07/06/17 15:23 Disposition Pt seen by WATCH CASER/PA only: No Clinical Impression: Fracture of femur, distal, closed Disposition: Xfer As Inpt ([facility]) Condition: Fair Referrals: Jamal Gudino PA-C [Primary Care Provider] -
[2017-07-06] MEDS ORDERED: HYDROmorphone 2 MG/ML VIAL IV PRN (16:33)
--- NOTE | 2017-07-06 17:34 | Internal Med History&Physical ---
Medical - H&P: HPI Patient information: Note initiated : 07/06/17 at 5:30 pm Service Date, if different from initiated Date: [] Patient: Noel Dee 86 y/o M admitted on for fall, R leg pain, possible deform. Chief Complaint: [] History of present illness: Mr. Dee is a 86 year old Male with h/o hypertension, hyperlipidemia, prostate cancer. Patient had recent right knee replacement surgery. While working in his yard today the patient fell down twice, injured his lower left leg, he was therefore brought to the hospital for further evaluation. He notes that he scraped his forehead right side of his body. He also has significant pain on the right thigh. The patient denies any headache, palpitations chest pain shortness of breath dizziness or any other prodromal symptoms before the fall. He notes this was a mechanical fall. X-ray in the ER shows patient has femur shaft fracture. Orthopedics has been consulted however they are not available to admit the patient and therefore the patient is being admitted to the medicine service. The patient has no acute active medical issues. Management of hospital aware that management of acute traumatic femur shaft fracture is not in the scope of practice of Internal Medicine trained physicians. The patient notes that he is fairly active after his knee surgery and has been participating in physical therapy, he denies any chest pain shortness of breath with activity. He had the knee surgery done recently 2 months ago without any significant complications. The chest x-ray done shows poor inspiratory effort but no acute infiltrates. No cardiomegaly. EKG shows sinus rhythm, left axis deviation left anterior hemiblock as well as old septal PA. This is unchanged from the EKG done previously. Labs reviewed, unremarkable. Patient was able to climb 15 stairs today at a temple without any chest pain or shortness of breath, he is also participating in his PT exercises without any issues. He denies any history of stroke, myocardial infarction, diabetes, renal failure, or congestive heart failure. 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, bilateral (Acute) Malignant neoplasm skin of ear (Chronic) Vitamin D deficiency (Chronic) Prostate cancer (Chronic) Pre-diabetes (Chronic) Macular degeneration (Chronic) Insomnia (Chronic) Hypertension (Chronic) Hyperlipidemia (Chronic) Basal cell carcinoma of skin (Chronic) Surgical history: Past Surgical History History of prostate surgery (Chronic) H/O hernia repair (Chronic) Pertinent family history: Family History Mother Genetic carrier of other disease Diabetes mellitus Brother Diabetes mellitus Medical - H&P: Meds Home Medications Medication Instructions Recorded Confirmed Type calcium citrate 200 mg (950 mg) 500 mg PO QDAY tab 04/25/16 07/06/17 History tablet cholecalciferol (vitamin D3) 1,000 1,000 unit PO DAILY 04/25/16 07/06/17 History unit capsule multivitamin tablet 1 tab-cap PO QDAY 04/25/16 07/06/17 History Aspirin 81 mg PO MOWEFR@0900 tab 05/30/16 07/06/17 History enzalutamide 40 mg capsule 80 mg PO QDAY cap 08/12/16 07/06/17 History hydrochlorothiazide 12.5 mg tablet 12.5 mg PO QDAY 90 Days #90 tab 08/12/16 Rx lisinopril 10 mg tablet 10 mg PO QDAY #90 tab 04/08/17 07/06/17 Rx Ferrous Sulfate 325 mg PO BIDCC 04/22/17 07/06/17 History HYDROcodone/APAP 10/325MG [[place] 1 - 2 tab PO Q4HP PRN #75 tab 04/29/17 Rx 10-325Mg] simvastatin 20 mg tablet 20 mg PO QPM #90 tab 05/27/17 07/06/17 Rx Allergies Allergy/AdvReac Type Severity Reaction Status Date / Time Amoxicillin AdvReac Mild Rash Verified 07/06/17 15:14 Medical - H&P: Exam - Constitutional Vitals: Temp Pulse Resp BP Pulse Ox 98.4 F 81 20 139/99 93 07/06/17 15:10 07/06/17 16:41 07/06/17 16:21 07/06/17 16:41 07/06/17 16:41 Exam: GENERAL: The patient is a well-developed, well-nourished in no apparent distress. Is alert and oriented x3. VITAL SIGNS: Reviewed and as noted elsewhere. HEENT: Head is normocephalic , has some abrasion on the right eye brow region. Extraocular muscles are intact. Pupils are equal, round, and reactive to light. Nares appeared normal. Mouth appears any without lesions. Mucous membranes are moist. NECK: Normal to inspection, Supple, No lymphadenopathy or thyromegaly. LUNGS: Air entry equal on both sides, no wheezing, crackles or rhonchi noted. No accessory muscles of respiration HEART: Regular rate and rhythm normal, S1 and S2 heard, no Gallop, S3 or Rub Noted, No Gross murmur heard. ABDOMEN: Soft, nontender, and nondistended. Positive bowel sounds. No hepatosplenomegaly was noted. EXTREMITIES: No cyanosis, clubbing, rash, lesions or edema. Right leg immobilized, good distal pulses, patient able to move toes, NEUROLOGIC: Cranial nerves II through XII are grossly intact. Motor and Sensory System Grossly Intact PSYCHIATRIC: Normal affect, Normal Mood. Appropriate Behavior. SKIN: No ulceration or wounds noted, No jaundice, No rash noted. Medical - H&P: Reslt - Labs CBC & Chem 7: 07/06/17 15:23 07/06/17 15:23 Medical - H&P: A/P - Narrative A/P Narrative: A/P Distal Femur fracture: After mechanical fall, management as per ortho, DR Fleming has been consulted and will be reviewing the patient case Pre op evaluation.:RCRI 1 (no h/o CAD but EKG suggestive of old asmi) , but mets is 4 (able to , pt will be moderate risk for surgery due to age, no reversible risk factors, no acute contraindication for surgery) Fall did not seem significant, pt has no headache or visual changes, will just monitor for now, if any AZURE DEVELOPER changes consider Head CT, at this time pt exam is non focal, and pt has no complaints. HTN bp elevated, hold home bp meds pre op, resume post op, prn clonidine for now HLD continue statin Prostate cancer: Continue home meds, DVT hep sq Diet regular Full code. Social History - Tobacco smoking status: Former smoker - Alcohol alcohol intake frequency: holiday/special occasion only - Substance use substance use type: does not use
[2017-07-06] MEDS ORDERED: LIDOCAINE JEL 2% 1 TUBE 30GM TOPICAL ONE (18:08)
--- NOTE | 2017-07-06 18:35 | XRay Report ---
CLINICAL INFORMATION: Chest pain COMPARISON: None. FINDINGS: The heart is mildly enlarged. Mediastinum and pulmonary vessels are normal. There is minor scarring or atelectasis in both lung bases. No bal infiltrates or effusions. Bones and soft tissues are normal IMPRESSION: Mild cardiomegaly, but no CHF or other significant acute process Interpreted and Authenticated by: Alexei Segovia 07/06/17
[2017-07-06] MEDS ORDERED: cloNIDine HCL 0.1 MG TABLET PO PRN (18:36)
[2017-07-06] MEDS ORDERED: ACETAMINOPHEN 325 MG TABLET PO PRN (18:36)
[2017-07-06] MEDS ORDERED: ONDANSETRON 4 MG/2 ML VIAL IV PRN (18:36)
[2017-07-06] MEDS ORDERED: oxyCODONE/APAP 5/325MG TABLET PO PRN (18:36)
[2017-07-06] MEDS ORDERED: NALOXONE HCL 0.4 MG/ML VIAL IV PRN (18:36)
--- NOTE | 2017-07-06 18:40 | XRay Report ---
CLINICAL INFORMATION: Trauma COMPARISON: None. FINDINGS: There is a minimally comminuted spiral fracture of the distal femoral diaphysis. Distal fragment is displaced one shaft width in a medial direction. Total knee prostheses is anatomically aligned without loosening or infection. There are 3-4 large calcifications overlying the superior popliteal fossa ranging up to 3.8 cm IMPRESSION: Displaced spiral fracture distal femoral diaphysis Interpreted and Authenticated by: Alexei Segovia 07/06/17
[2017-07-06] MEDS: LACTATED RINGERS 1,000 ML IV SCH (18:46)
[2017-07-06 19:35] LABS: Basophils # (Auto) 0 K/mcL (0.0-0.3); Basophils % (Auto) 0.6 % (0.0-2.0); Eosinophils # (Auto) 0.2 K/mcL (0.0-0.7); Eosinophils % (Auto) 2.5 % (0.0-7.0); Granulocytes % (Auto) 53.2 % (38.0-78.0); Lymphocytes # (Auto) 2.6 K/mcL (1.5-4.8); Lymphocytes % (Auto) 36.4 % (15.5-49.0); Mean Cell Volume 94.3 fL (80.0-100.0); Mean Corpuscular HGB Conc 33.6 g/dL (31.0-36.0); Mean Corpuscular Hemoglobin 31.6 pg (26.0-34.0); Monocytes # (Auto) 0.5 K/mcL (0.1-0.9); Monocytes % (Auto) 7.3 % (1.0-12.0); Platelet Count 165 K/mcL (140-440); RBC 4.33 M/mcL (4.50-5.90); Red Cell Distribution Width 14.8 % (11.5-14.5)
[2017-07-06 19:36] LABS: ALT/SGPT 11 U/l (0-40); Albumin 3.8 gm/dL (3.2-5.2); Alkaline Phosphatase 56 U/L (39-117); Blood Urea Nitrogen 20 mg/dl (8-23)
[2017-07-06] MEDS ORDERED: SIMVASTATIN 20 MG TABLET PO SCH (21:00)
[2017-07-06] MEDS: HEPARIN 5,000 UNIT/ML VIAL SQ SCH (21:02)
[2017-07-06] MEDS: FERROUS SULFATE 325 MG TABLET PO SCH (21:02)
[2017-07-06] MEDS: 0.9 % SODIUM CHLORIDE 10 ML SYRINGE IV SCH (21:04)
[2017-07-07] MEDS: HYDROmorphone 2 MG/ML VIAL IV PRN ×2 (01:41→08:54)
[2017-07-07] MEDS: 0.9 % SODIUM CHLORIDE 10 ML SYRINGE IV SCH ×3 (05:07→20:53)
[2017-07-07 05:14] LABS: Appearance,Urine CLEAR; Bilirubin,Urine NEG (NEG); Color,Urine YELLOW; Glucose,Urine (UA) NEGATIVE (NEG); Leukocyte Esterase,Urine NEG /uL (NEG); Protein,Urine NEG (NEG); Urine Blood NEG mg/dL (<0.03); Urobilinogen,Urine NEG (NEG)
[2017-07-07] MEDS: LACTATED RINGERS 1,000 ML IV SCH ×2 (08:14→17:58)
[2017-07-07] MEDS: FERROUS SULFATE 325 MG TABLET PO SCH ×2 (08:48→17:46)
[2017-07-07] MEDS ORDERED: ASPIRIN 81 MG TAB.CHEW PO SCH (09:00)
[2017-07-07] MEDS ORDERED: MULTIVIT,THER IRON,CA,FA & MIN 1 TABLET PO SCH (09:00)
--- NOTE | 2017-07-07 09:34 | Internal Med Progress Note ---
Medical - PN: Subj Patient information: Note initiated : 07/07/17 at 9:30 am Service Date, if different from initiated Date: [] Patient: Noel Dee 86 y/o M admitted on 07/06/17 for fall, R leg pain, possible deform. Chief Complaint: [] Interval history: pt seen examined, pain ok controlled still to be evaluated by surgery Pt anxious / frustrated regarding lack of clarity with regards to his care plan. Pertinent ROS: Denies headache, dizziness Denies chest pain, palpitations Denies cough or shortness of breath Denies abdominal pain, nausea or vomiting. - Constitutional Vitals: Vital Signs Temp Pulse Resp BP Pulse Ox 97.3 F 66 16 147/79 94 07/07/17 06:34 07/07/17 04:00 07/07/17 06:34 07/07/17 06:34 07/07/17 06:34 Period Temp Pulse Resp BP Sys/Mackey Pulse Ox Last 24 Hr 97.3 F-98.4 F 64-81 14-20 139-182/68-146 92-99 Intake and Output 07/06/17 07/07/17 07/07/17 21:59 05:59 13:59 Intake Total 500 / 500 1000 / 1000 Output Total 450 / 450 Balance 50 / 50 1000 / 1000 Weight 158 lb Intake & Output: Intake & Output 07/06/17 07/07/17 07/07/17 21:59 05:59 13:59 Intake Total 500 / 500 1000 / 1000 Output Total 450 / 450 Balance 50 / 50 1000 / 1000 Weight 158 lb Intake: IV 1000 / 1000 Lactated Ringers 1,000 ml @ 75 1000 / 1000 mls/hr IV .[id number] [facility] Rx#: [id number] Oral 500 / 500 Output: Urine Catheter Amount 450 / 450 Other: Meal fruit cup Percent of Meal Consumed 100% Feeding Ability Independent Exam: Constitutional; Afebrile, cooperative, alert, not in distress. Respiratory system: Air Entry equal on both sides, No crackles or wheezing, no rhonchi. CVS- Rate rhythm regular, S1,S2 heard, no gallop, no rub. [employer]- AOOx3 Medical - PN: Obj Da - Labs CBC & Chem 7: 07/06/17 15:23 07/06/17 15:23 Labs: Abnormal Lab Results 07/06/17 07/06/17 15:23 15:23 RBC 4.33 L Hct 40.8 L RDW 14.8 H Glucose 116 H Total Protein 5.7 L Globulin 1.9 L Meds: Medications Acetaminophen (Tylenol) 650 mg PO Q6HP PRN PRN Reason: PAIN/FEVER > 101 Aspirin (Aspirin) 81 mg PO MOWEFR@0900 [facility] Last Admin: 07/07/17 08:48 Dose: Not Given Clonidine HCl (Catapres) 0.1 mg PO Q4HP PRN PRN Reason: Hypertension Ferrous Sulfate (Ferrous Sulfate) 325 mg PO BIDCC [facility] Last Admin: 07/07/17 08:48 Dose: Not Given Heparin Sodium (Porcine) (Heparin) 5,000 unit SQ Q12 [facility] Last Admin: 07/06/17 21:02 Dose: 5,000 unit Hydromorphone HCl (Dilaudid) 0.5 mg IV Q2HP PRN PRN Reason: PAIN LEVEL > 6 Last Admin: 07/07/17 08:54 Dose: 0.5 mg Lactated Ringer's (Lactated Ringers) 1,000 mls @ 75 mls/hr IV .[id number] [facility] Last Admin: 07/07/17 08:14 Dose: 75 mls/hr Iron Carb/Multivit/[place]/Folic Acid (Multivitamin W/Minerals) 1 tab PO DAILY [facility] Naloxone HCl (Narcan) 0.1 mg IV Q2MIN PRN PRN Reason: Opiate Reversal Ondansetron HCl (Zofran) 4 mg IV Q6HP PRN PRN Reason: Nausea And Vomiting Oxycodone/Acetaminophen (Percocet 5-325 Mg) 1 tab PO Q4HP PRN PRN Reason: PAIN LEVEL 3-6 Last Admin: 07/06/17 21:03 Dose: 1 tab Enzalutamide [Xtandi (] 40 Mg Cap) 2 dose PO QDAY [facility] Simvastatin (Zocor) 20 mg PO QPM [facility] Last Admin: 07/06/17 21:02 Dose: 20 mg Sodium Chloride (Saline Flush) 10 ml IV Q8 [facility] Last Admin: 07/07/17 05:07 Dose: Not Given Medical - PN: A/P - Time Spent With Patient Total time spent is greater than 50% in coordination of care (as documented) at patient's floor/unit and/or counseling patient: - Narrative A/P Narrative: A/P Distal Femur fracture: After mechanical fall, management as per ortho, await surgery eval to decide plan of care, yet to be seen. Pre op evaluation.:RCRI 1 (no h/o CAD but EKG suggestive of old asmi) , but mets is 4 (able to , pt will be moderate risk for surgery due to age, no reversible risk factors, no acute contraindication for surgery) No active medical issue HTN bp elevated, hold home bp meds pre op, resume post op, prn clonidine for now HLD continue statin Prostate cancer: Continue home meds, DVT hep sq Diet regular Full code. Medical - PN: Qual - VTE Deep Vein Thrombosis/Pulmonary Embolism Present on Admission: No
[2017-07-07] MEDS: HEPARIN 5,000 UNIT/ML VIAL SQ SCH (11:01)
[2017-07-07] MEDS ORDERED: ceFAZolin 1 GM VIAL IV ONE (13:44)
[2017-07-07] MEDS ORDERED: LIDOCAINE HCL/PF 100 MG/5 ML SYRINGE IV ONE (14:00)
[2017-07-07] MEDS ORDERED: PROPOFOL 200 MG/20 ML VIAL IV ONE (14:00)
[2017-07-07] MEDS ORDERED: TRANEXAMIC ACID 1,000 MG/10 ML VIAL IV ONE ×2 (14:00→15:46)
[2017-07-07] MEDS ORDERED: PHENYLEPHRINE 10 MG/ML VIAL IV ONE (14:00)
[2017-07-07] MEDS ORDERED: KETAMINE 100 MG/ML ML IV ONE (14:00)
[2017-07-07] MEDS ORDERED: HETASTARCH 6% 500 ML BAG IV ONE (14:00)
[2017-07-07] MEDS ORDERED: ONDANSETRON 4 MG/2 ML VIAL IV ONE (14:00)
[2017-07-07] MEDS ORDERED: ePHEDrine 50 MG/ML AMPUL IV ONE (14:00)
[2017-07-07] MEDS ORDERED: DEXAMETHASONE 10 MG/ML VIAL IV ONE (14:00)
[2017-07-07] MEDS ORDERED: MIDAZOLAM 2 MG/2 ML VIAL IV ONE (14:00)
[2017-07-07] MEDS ORDERED: fentaNYL 100 MCG/2 ML VIAL IV ONE (14:00)
[2017-07-07] MEDS ORDERED: IPRATROPIUM/ALBUTEROL 3 ML AMPUL.NEB NEB PRN (15:14)
[2017-07-07] MEDS ORDERED: fentaNYL 100 MCG/2 ML VIAL IV PRN (15:14)
[2017-07-07] MEDS ORDERED: PROMETHAZINE 25 MG/ML VIAL IV PRN (15:14)
[2017-07-07] MEDS ORDERED: ACETAMINOPHEN 1,000 MG/100 ML BOTTLE IV ONE (15:14)
[2017-07-07] MEDS ORDERED: ATROPINE SULFATE 0.4 MG/ML VIAL IV PRN (15:14)
[2017-07-07] MEDS ORDERED: MEPERIDINE 25 MG/ML SYRINGE IV PRN (15:14)
[2017-07-07] MEDS ORDERED: METOPROLOL TARTRATE 5 MG/5 ML VIAL IV PRN (15:14)
[2017-07-07] MEDS ORDERED: ePHEDrine 50 MG/ML AMPUL IV PRN (15:14)
[2017-07-07] MEDS ORDERED: diphenhydrAMINE 50 MG/ML VIAL IV PRN (15:14)
[2017-07-07] MEDS ORDERED: METHOCARBAMOL 1,000 MG/10 ML VIAL IV PRN (15:14)
[2017-07-07] MEDS ORDERED: FLUMAZENIL 0.1 MG/ML ML IV PRN (15:14)
[2017-07-07] MEDS ORDERED: HYDROmorphone 2 MG/ML VIAL IV PRN ×3 (15:14→16:59)
[2017-07-07] MEDS ORDERED: ONDANSETRON 4 MG/2 ML VIAL IV PRN ×3 (15:14→16:59)
[2017-07-07] MEDS ORDERED: LACTATED RINGERS 1,000 ML IV SCH (15:15)
[2017-07-07] MEDS ORDERED: BENZOCAINE/MENTHOL 1 LOZENGE PO PRN ×2 (15:46→16:59)
[2017-07-07] MEDS ORDERED: BISACODYL 10 MG SUPP.RECT PR PRN ×2 (15:46→16:59)
[2017-07-07] MEDS ORDERED: ACETAMINOPHEN 325 MG TABLET PO PRN ×2 (15:46→16:59)
[2017-07-07] MEDS ORDERED: POLYETHYLENE GLYCOL 3350 17 GM PACKET PO PRN ×2 (15:46→16:59)
[2017-07-07] MEDS ORDERED: FLEETS ADULT ENEMA PR PRN ×2 (15:46→16:59)
[2017-07-07] MEDS ORDERED: TEMAZEPAM 15 MG CAPSULE PO PRN (15:46)
[2017-07-07] MEDS ORDERED: HYDROcodone/APAP 10/325MG TABLET PO PRN ×3 (15:46→16:59)
[2017-07-07] MEDS ORDERED: MAGNESIUM HYDROXIDE 30 ML ORAL.SUSP PO PRN ×2 (15:46→16:59)
--- NOTE | 2017-07-07 15:46 | Brief Operative Note ---
Date of procedure: 07/07/17 Pre-op diagnosis: right femur fx distal 02/26 Post-op diagnosis: same Procedure: right femur orif of suprachondylar femur fx Grafts/Implants: Yes Anesthesia: GETA Complications: other Complications Description: retained drill tip 07/07/17 15:46 Surgeon: Pankaj Fleming Case Picker: Phan Yin Estimated blood loss (cc): 200 Specimens Removed/Pathology: none sent Condition: stable Disposition: PACU
[2017-07-07] MEDS ORDERED: 0.45 % SODIUM CHLORIDE 1,000 ML IV SCH (16:00)
[2017-07-07] MEDS ORDERED: ceFAZolin 1 GM VIAL IV SCH (16:00)
--- NOTE | 2017-07-07 16:14 | XRay Report ---
CLINICAL INFORMATION: Open reduction and internal fixation of distal femoral fracture TECHNIQUE: 1.1 minutes fluoroscopy utilized. Intraoperative spot films were obtained COMPARISON: Plain film examination dated 07/06/2017 FINDINGS: Open reduction and internal fixation of distal right femoral diaphyseal fracture. There is a dynamic compression plate bridging the fracture line. There are multiple screws. Alignment is anatomic IMPRESSION: 1. Intraoperative fluoroscopy utilized. 2. Open reduction and internal fixation of distal left femoral diaphyseal fracture Interpreted and Authenticated by: Alexei Escalona 07/07/17
[2017-07-07] MEDS ORDERED: NALOXONE HCL 0.4 MG/ML VIAL IV PRN (16:59)
[2017-07-07] MEDS ORDERED: cloNIDine HCL 0.1 MG TABLET PO PRN (16:59)
--- NOTE | 2017-07-07 17:02 | XRay Report ---
CLINICAL INFORMATION: History of right knee arthroplasty. Open reduction and internal fixation of distal right femoral fracture TECHNIQUE: AP and lateral right femur COMPARISON: Preoperative evaluation dated July 06, 2017 FINDINGS: There is an oblique fracture of the distal right femoral diaphysis. Patient is status post open reduction and internal fixation. There is a long dynamic compression plate with multiple screws crossing the fracture line. Alignment is essentially anatomic. There is a prosthetic right knee, unchanged. IMPRESSION: Status post open reduction and internal fixation of distal right femoral diaphyseal fracture. Interpreted and Authenticated by: Alexei Escalona 07/07/17
[2017-07-07] MEDS ORDERED: KETOROLAC 15 MG/ML VIAL IV SCH (18:00)
[2017-07-07] MEDS: DOCUSATE SODIUM 100 MG CAPSULE PO SCH (20:53)
[2017-07-07] MEDS: ASPIRIN 325 MG ENTERIC COATED TABLET PO SCH (20:53)
[2017-07-07] MEDS: SIMVASTATIN 20 MG TABLET PO SCH (20:53)
[2017-07-07] MEDS ORDERED: SENNOSIDES 1 TABLET PO SCH (21:00)
[2017-07-07] MEDS ORDERED: DOCUSATE SODIUM 100 MG CAPSULE PO SCH (21:00)
[2017-07-07] MEDS ORDERED: ASPIRIN 325 MG ENTERIC COATED TABLET PO SCH (21:00)
[2017-07-07] MEDS ORDERED: 0.9 % SODIUM CHLORIDE 10 ML SYRINGE IV SCH (22:00)
[2017-07-08] MEDS: LACTATED RINGERS 1,000 ML IV SCH ×3 (00:51→22:05)
[2017-07-08] MEDS: 0.9 % SODIUM CHLORIDE 10 ML SYRINGE IV SCH ×4 (05:57→21:19)
--- NOTE | 2017-07-08 07:35 | Orthopedic Progress Note ---
Subjective Patient information: Note initiated : 07/08/17 at 7:34 am Service Date, if different from initiated Date: [] Patient: Noel Dee 86 y/o M admitted on 07/06/17 for Fall, R Leg Pain, Possible Deform/Distal Femur Fx. Chief Complaint: [Pt is stable this morning on post operative day 1 without any significant concerns or complaints. Patients vital signs have remained stable. Patients dressing is dry and is grossly instact from a neurovascular and motor standpoint. Patients 10 point ROS is otherwise negative. ] Objective Vital signs: Vital Signs Temp Pulse Pulse Resp BP Pulse Ox 07/08/17 06:39 98.6 F 18 117/70 92 07/08/17 04:00 98.9 F 106 H 22 100/63 94 07/08/17 00:30 99 07/08/17 00:00 98.2 F 89 20 124/70 95 07/07/17 21:13 76 165/78 95 07/07/17 20:50 98 07/07/17 19:47 97 07/07/17 19:41 98.0 F 86 20 124/74 97 07/07/17 18:43 93 H 138/74 94 07/07/17 18:11 79 156/85 95 07/07/17 17:42 77 182/92 96 07/07/17 17:27 76 167/77 94 07/07/17 17:11 70 160/86 95 07/07/17 16:56 76 165/78 95 07/07/17 16:42 74 166/77 95 07/07/17 16:30 98.0 F 71 16 183/83 95 07/07/17 16:00 98.0 F 72 16 192/85 96 07/07/17 15:55 98.0 F 73 18 188/84 97 07/07/17 15:50 98.0 F 74 16 171/85 99 07/07/17 15:47 97 07/07/17 15:45 98.0 F 83 16 178/85 100 07/07/17 12:00 97.9 F 16 148/70 96 Intake and Output 07/07/17 07/08/17 07/08/17 21:59 05:59 13:59 Intake Total 1360 / 1360 1266 / 1266 Output Total 300 / 300 1200 / 1200 Balance 1060 / 1060 66 / 66 Intake: IV 100 / 100 516 / 516 Lactated Ringers 1,000 ml @ 75 516 / 516 mls/hr IV .[id number] [facility] Rx#: [id number] Oral 260 / 260 750 / 750 IV - Manual Only 1000 / 1000 Output: Urine Catheter Amount 300 / 300 1200 / 1200 Other: Meal Dinner Percent of Meal Consumed 50% Feeding Ability Independent Weight 162 lb Intake & Output: Intake & Output 07/07/17 07/08/17 07/08/17 21:59 05:59 13:59 Intake Total 1360 / 1360 1266 / 1266 Output Total 300 / 300 1200 / 1200 Balance 1060 / 1060 Weight 162 lb Intake: IV 100 / 100 516 / 516 Lactated Ringers 1,000 ml @ 75 516 / 516 mls/hr IV .[id number] [facility] Rx#: [id number] Oral 260 / 260 750 / 750 IV - Manual Only 1000 / 1000 Output: Urine Catheter Amount 300 / 300 1200 / 1200 Other: Meal Dinner Percent of Meal Consumed 50% Feeding Ability Independent Incision: Yes healing Incision clean and dry: Yes Dressing: Yes clean, Yes dry Weight bearing status: non Neurological exam IM: Yes motor sensory intact, Yes neurovascular intact Extremities exam IM: Yes Foot pink and warm, Yes neurovascular intact - Labs CBC & BMP: 07/08/17 04:10 07/06/17 15:23 Labs: Orthopedic Labs 07/07/17 06:17 PT 14.1 INR 1.1 07/08/17 07/06/17 04:10 15:23 Hgb 13.7 Hct 29.6 L 40.8 L Assessment and Plan (1) Hx of fracture of femur The patient has been educated regarding dressing care, Physical Therapy recommendations, home exercises, restrictions, and follow up appointments. The patient has had all necessary DME prescribed. The patient has remained relatively stable during their hospital course. Status: Acute
--- NOTE | 2017-07-08 07:38 | Discharge Summary ---
Ortho Discharge Plan - General - Patient Instructions Diet: Regular Diet Activity: non weight bearing Dressing Care: May shower in 3 days, Aquacel Ag - leave on for 5 days - Problem Maintenance (1) Hx of fracture of femur Status: Acute - Follow Up Plan Follow Up Appointments: Jamal Gudino PA-C [Primary Care Provider] - Disposition: er [facility] Prognosis: Fair Rehab Potential: Fair I certify that the patient requires SNF services: Yes Overall status at discharge: patient is progressing back to baseline - Orders For Discharge Prescriptions: Aspirin [Ecotrin] 325 mg PO BID #60 tab.ec Docusate Sodium [Colace] 100 mg PO BID #60 cap HYDROcodone/APAP 10/325MG [[place] 10-325Mg] 1 - 2 tab PO Q4HP PRN #75 tab PRN Reason: Pain Level 3-6
[2017-07-08] MEDS ORDERED: LISINOPRIL 10 MG TABLET PO SCH (09:00)
[2017-07-08] MEDS ORDERED: CALCIUM CITRATE 500 MG PO SCH (09:00)
[2017-07-08] MEDS ORDERED: HYDROCHLOROTHIAZIDE 25 MG TABLET PO SCH (09:00)
[2017-07-08] MEDS ORDERED: NON FORMULARY MEDICATION 1 DOSE MISCELL (Cholecalciferol (Vitamin D3) [Vitamin D3] 1,000 U PO SCH (09:00)
--- NOTE | 2017-07-08 09:17 | Operative Note ---
DATE OF OPERATION: 07/07/2017 PREOPERATIVE DIAGNOSIS: Right distal third or supracondylar femur fracture. POSTOPERATIVE DIAGNOSIS: Right distal third or supracondylar femur fracture. PROCEDURE: Right supracondylar femur fracture open reduction and internal fixation with a supracondylar plate and screws. SURGEON: Pankaj Fleming M.D. CNC FIELD SERVICE ENGINEER: Phan Yin PA-C. ESTIMATED BLOOD LOSS: About 200 mL. IMPLANTS PLACED: A 16-hole supracondylar plate from [employer]. DESCRIPTION OF PROCEDURE: The patient was brought to the operating room and put to sleep with general LMA anesthesia. Once asleep, the patient had the right leg sterilely prepped and draped in the usual sterile fashion, confirmed as the operative site by a time out both by x-rays, consent form and initials on the skin. Once done and had been sterilely prepped, we made an incision about 2 to 3-inches long around the Gerdy's tubercle laterally and extended this through the IT band. We used image to get the supracondylar fracture or distal third fracture perfectly aligned. Once this was done, we then placed the plate. A 16-hole plate was slid up through this minimally invasive incision. This was then attached to the bone initially with a nonlocking screw distally and a nonlocking screw proximally. We then took images again to confirm alignment both on AP and lateral views. Once we confirmed this alignment, we then placed the plate and filled the rest of the screw holes. We placed mostly nonlocking screws, but there were two screws proximally that were nonlocking and then distally there were four screws nonlocking. It seemed to give good purchase and good alignment. We irrigated thoroughly and then these multiple holes, very small incisions, were then irrigated and closed with 2-0 Vicryl and eladia. The fascial layer with 0 Vicryl was closed and then the skin was closed with 2-0 Vicryl and eladia. We irrigated thoroughly, placed a sterile bandage. The patient left the operating room in good condition. RB[facility]:dorian Job ID: [id number] Doc ID: [id number] Pankaj Fleming MD
[2017-07-08] MEDS: MULTIVIT,THER IRON,CA,FA & MIN 1 TABLET PO SCH (09:45)
[2017-07-08] MEDS: LISINOPRIL 10 MG TABLET PO SCH (09:45)
[2017-07-08] MEDS: FERROUS SULFATE 325 MG TABLET PO SCH ×2 (09:45→18:23)
[2017-07-08] MEDS: VITAMIN D3 1,000 UNIT TABLET PO SCH (09:45)
[2017-07-08] MEDS: DOCUSATE SODIUM 100 MG CAPSULE PO SCH ×2 (09:45→21:19)
[2017-07-08] MEDS: ASPIRIN 325 MG ENTERIC COATED TABLET PO SCH ×2 (09:45→21:19)
[2017-07-08] MEDS: HYDROCHLOROTHIAZIDE 25 MG TABLET PO SCH (09:46)
[2017-07-08] MEDS: CALCIUM (OYSTER SHELL) 500 MG TABLET PO SCH (09:46)
--- NOTE | 2017-07-08 12:15 | Internal Med Progress Note ---
Medical - PN: Subj Patient information: Note initiated : 07/08/17 at 12:13 pm Service Date, if different from initiated Date: [] Patient: Noel Dee 86 y/o M admitted on 07/06/17 for Fall, R Leg Pain, Possible Deform/Distal Femur Fx. Chief Complaint: [] Interval history: pt seen examined, pain ok controlled still to be evaluated by surgery Pt anxious / frustrated regarding lack of clarity with regards to his care plan. 07/08 Pt seen examined no acute complaints no issues, hemodynamically stable. tolerating po diet well anticpating d/c tomorrow to snf Pertinent ROS: Denies headache, dizziness Denies chest pain, palpitations Denies cough or shortness of breath Denies abdominal pain, nausea or vomiting. - Constitutional Vitals: Vital Signs Temp Pulse Resp BP Pulse Ox 98.6 F 106 H 18 117/70 92 07/08/17 06:39 07/08/17 04:00 07/08/17 06:39 07/08/17 06:39 07/08/17 06:39 Period Temp Pulse Resp BP Sys/Mackey Pulse Ox Last 24 Hr 98.0 F-98.9 F 70-106 16-22 100-192/63-92 92-100 Intake and Output 07/07/17 07/08/17 07/08/17 21:59 05:59 13:59 Intake Total 1360 / 1360 1266 / 1266 Output Total 300 / 300 1200 / 1200 Balance 1060 / 1060 66 / 66 Weight 162 lb Intake & Output: Intake & Output 07/07/17 07/08/17 07/08/17 21:59 05:59 13:59 Intake Total 1360 / 1360 1266 / 1266 Output Total 300 / 300 1200 / 1200 Balance 1060 / 1060 66 / 66 Weight 162 lb Intake: IV 100 / 100 516 / 516 Lactated Ringers 1,000 ml @ 75 516 / 516 mls/hr IV .[id number] [facility] Rx#: [id number] Oral 260 / 260 750 / 750 IV - Manual Only 1000 / 1000 Output: Urine Catheter Amount 300 / 300 1200 / 1200 Other: Meal Dinner Percent of Meal Consumed 50% Feeding Ability Independent Exam: Constitutional; Afebrile, cooperative, alert, not in distress. Ears- Ext ear normal, hearing normal to conversation. Neck- Midline trachea, supple Respiratory system: Air Entry equal on both sides, No crackles or wheezing, no rhonchi. GUN EXAMINER- AOOx3, moving all extremities, no gross focal deficit noted. Medical - PN: Obj Da - Labs CBC & Chem 7: 07/08/17 04:10 07/06/17 15:23 Labs: Abnormal Lab Results 07/08/17 07/06/17 07/06/17 04:10 15:23 15:23 RBC 4.33 L Hct 29.6 L 40.8 L RDW 14.8 H Glucose 116 H Total Protein 5.7 L Globulin 1.9 L Meds: Medications Acetaminophen (Tylenol) 650 mg PO Q6HP PRN PRN Reason: PAIN/FEVER > 101 Hydrocodone Bitart/Acetaminophen (Taylor 10/325mg) 1 - 2 tab PO Q4HP PRN PRN Reason: PAIN LEVEL 3-6 Last Admin: 07/08/17 10:19 Dose: 1 tab Aspirin (Ecotrin) 325 mg PO BID [facility] Last Admin: 07/08/17 09:45 Dose: 325 mg Bisacodyl (Dulcolax) 10 mg NV Q2-3DAYS PRN PRN Reason: Constipation Calcium Carbonate/Glycine (Oscal) 500 mg PO DAILY [facility] Last Admin: 07/08/17 09:46 Dose: 500 mg Cefazolin Sodium (Ancef) 2 gm IV Q8H [facility] Stop: 07/08/17 19:01 Clonidine HCl (Catapres) 0.1 mg PO Q4HP PRN PRN Reason: Hypertension Docusate Sodium (Colace) 100 mg PO BID [facility] Last Admin: 07/08/17 09:45 Dose: 100 mg Ferrous Sulfate (Ferrous Sulfate) 325 mg PO BIDCC [facility] Last Admin: 07/08/17 09:45 Dose: 325 mg Hydrochlorothiazide (Oretic) 12.5 mg PO QDAY [facility] Last Admin: 07/08/17 09:46 Dose: 12.5 mg Hydromorphone HCl (Dilaudid) 0.5 mg IV Q2HP PRN PRN Reason: PAIN LEVEL > 6 Last Admin: 07/07/17 17:57 Dose: 0.5 mg Lactated Ringer's (Lactated Ringers) 1,000 mls @ 75 mls/hr IV .[id number] [facility] Last Admin: 07/08/17 06:42 Dose: Not Given Iron Carb/Multivit/Costilla/Folic Acid (Multivitamin W/Minerals) 1 tab PO DAILY [facility] Last Admin: 07/08/17 09:45 Dose: 1 tab Lisinopril (Zestril) 10 mg PO QDAY [facility] Last Admin: 07/08/17 09:45 Dose: 10 mg Magnesium Hydroxide (Milk Of Magnesia) 30 ml PO BIDP PRN PRN Reason: Constipation Naloxone HCl (Narcan) 0.1 mg IV Q2MIN PRN PRN Reason: Opiate Reversal Ondansetron HCl (Zofran) 4 mg IV Q6HP PRN PRN Reason: Nausea And Vomiting Enzalutamide [Xtandi (] 40 Mg Cap) 2 dose PO QDAY [facility] Last Admin: 07/08/17 10:19 Dose: 2 dose Polyethylene Glycol (Miralax) 17 gm PO DAILYP PRN PRN Reason: Constipation Simvastatin (Zocor) 20 mg PO QPM [facility] Last Admin: 07/07/17 20:53 Dose: 20 mg Sodium Biphosphate/Sodium Phosphate (Fleets Adult) 1 dose NV Q3-4DAYS PRN PRN Reason: Constipation Sodium Chloride (Saline Flush) 10 ml IV Q8 [facility] Last Admin: 07/08/17 05:57 Dose: Not Given Throat Lozenges (Cepacol) 1 lozenge PO PRN PRN PRN Reason: Sore Throat Vitamin D (Vitamin D3) 1,000 unit PO DAILY [facility] Last Admin: 07/08/17 09:45 Dose: 1,000 unit Medical - PN: A/P - Time Spent With Patient Total time spent is greater than 50% in coordination of care (as documented) at patient's floor/unit and/or counseling patient: - Narrative A/P Narrative: A/P Distal Femur fracture: After mechanical fall, management as per ortho, No active medical issue HTN bp stable on home meds HLD continue statin Prostate cancer: Continue home meds, DVT hep sq Diet regular Full code. Anticipate d/c to snf in AM Medical - PN: Qual - VTE Deep Vein Thrombosis/Pulmonary Embolism Present on Admission: No
[2017-07-08] MEDS: ceFAZolin 1 GM VIAL IV SCH ×2 (12:48→19:55)
[2017-07-08] MEDS ORDERED: TAMSULOSIN 0.4 MG CAPSULE PO SCH (21:00)
[2017-07-08] MEDS: SIMVASTATIN 20 MG TABLET PO SCH (21:19)
[2017-07-08] MEDS ORDERED: ceFAZolin 1 GM VIAL IV SCH (22:00)
[2017-07-09] MEDS: 0.9 % SODIUM CHLORIDE 10 ML SYRINGE IV SCH (06:45)
--- NOTE | 2017-07-09 07:10 | Orthopedic Progress Note ---
Subjective Patient information: Note initiated : 07/09/17 at 7:08 am Service Date, if different from initiated Date: [] Patient: Noel Dee 86 y/o M admitted on 07/06/17 for Fall, R Leg Pain, Possible Deform/Distal Femur Fx. Chief Complaint: [mimimal pain and eating well touch weight bearing] Objective Vital signs: Vital Signs Temp Pulse Resp BP Pulse Ox 07/09/17 04:00 97.3 F 83 18 100/64 97 07/08/17 23:59 97.5 F 83 18 96/61 94 07/08/17 23:58 94 07/08/17 21:35 95 07/08/17 21:34 95 07/08/17 20:00 98.0 F 87 20 129/73 96 07/08/17 16:00 98.2 F 72 18 115/61 95 07/08/17 14:00 97.6 F 67 18 122/63 95 07/08/17 12:00 99.7 F H 100 H 18 92/57 96 07/08/17 08:00 92 Intake and Output 07/08/17 07/09/17 07/09/17 21:59 05:59 13:59 Intake Total 1760 / 1760 250 / 250 Output Total 460 / 460 700 / 700 Balance 1300 / 1300 -450 / -450 Intake: Oral 1760 / 1760 250 / 250 Output: Urine Catheter Amount 450 / 450 700 / 700 Void Amount 10 / 10 Other: Meal Dinner Percent of Meal Consumed 100% Feeding Ability Independent Weight 160 lb 8 oz Intake & Output: Intake & Output 07/08/17 07/09/17 07/09/17 21:59 05:59 13:59 Intake Total 1760 / 1760 250 / 250 Output Total 460 / 460 700 / 700 Balance 1300 / 1300 -450 / -450 Weight 160 lb 8 oz Intake: Oral 1760 / 1760 250 / 250 Output: Urine Catheter Amount 450 / 450 700 / 700 Void Amount 10 / 10 Other: Meal Dinner Percent of Meal Consumed 100% Feeding Ability Independent Incision: Yes healing Incision clean and dry: Yes Dressing: Yes clean Weight bearing status: non Neurological exam IM: Yes oriented X3, Yes neurovascular intact Extremities exam IM: Yes Foot pink and warm, Yes neurovascular intact - Labs CBC & BMP: 07/08/17 04:10 07/06/17 15:23 Labs: Orthopedic Labs 07/07/17 06:17 PT 14.1 INR 1.1 07/08/17 07/06/17 04:10 15:23 Hgb 13.7 Hct 29.6 L 40.8 L
--- NOTE | 2017-07-09 09:32 | Discharge Summary ---
Medical - DS: Prov Patient information: Note initiated : 07/09/17 at 9:28 am Service Date, if different from initiated Date: [] Patient: Noel Dee 86 y/o M admitted on 07/06/17 for Fall, R Leg Pain, Possible Deform/Distal Femur Fx. Chief Complaint: [] Date of admission: 07/06/17 18:39 Discharge date: 07/09/17 Primary care physician: Jamal Gudino Admitting clinician: Jim Perez Consults: 07/07/17 11:23 Consult to Physician [CONS] Routine Comment: Consulting Provider: Pankaj Fleming Reason For Exam: Physician to Consult Discharging clinician: Jim Perez Medical - DS: Meds - Discharge Medications Prescriptions: Aspirin [Ecotrin] 325 mg PO BID #60 tab.ec Docusate Sodium [Colace] 100 mg PO BID #60 cap HYDROcodone/APAP 10/325MG [[place] 10-325Mg] 1 - 2 tab PO Q4HP PRN #75 tab PRN Reason: Pain Level 3-6 Tamsulosin [Flomax] 0.4 mg PO HS #30 cap Active and Home Medications: Home Medications calcium citrate 200 mg (950 mg) tablet 500 mg PO QDAY tab 04/25/16 [History Confirmed 07/06/17 Last Taken 04/27/17 09:00] cholecalciferol (vitamin D3) 1,000 unit capsule 1,000 unit PO DAILY 04/25/16 [ History Confirmed 07/06/17 Last Taken 04/27/17 09:00] multivitamin tablet 1 tab-cap PO QDAY 04/25/16 [History Confirmed 07/06/17 Last Taken 04/27/17 09:00] Aspirin 81 mg PO MOWEFR@0900 tab 05/30/16 [History Confirmed 07/06/17 Last Taken 04/21/17 09:00] enzalutamide 40 mg capsule 80 mg PO QDAY cap 08/12/16 [History Confirmed Last Taken 04/27/17 09:00] hydrochlorothiazide 12.5 mg tablet 12.5 mg PO QDAY 90 Days #90 tab 08/12/16 [Rx Confirmed 07/07/17 Last Taken 07/06/17 09:00] lisinopril 10 mg tablet 10 mg PO QDAY #90 tab 04/08/17 [Rx Confirmed 07/07/17 Last Taken 07/06/17 09:00] Ferrous Sulfate 325 mg PO BIDCC 04/22/17 [History Confirmed 07/06/17 Last Taken 04/27/17 21:00] simvastatin 20 mg tablet 20 mg PO QPM #90 tab 05/27/17 [Rx Confirmed 07/06/17 Last Taken Unknown] Aspirin [Ecotrin] 325 mg PO BID #60 tab.ec 07/08/17 [Rx Last Taken Unknown] Docusate Sodium [Colace] 100 mg PO BID #60 cap 07/08/17 [Rx Last Taken Unknown] HYDROcodone/APAP 10/325MG [[place] 10-325Mg] 1 - 2 tab PO Q4HP PRN #75 tab [Rx Last Taken Unknown] Medical - DS: Hosp Hospital course: Mr. Dee is a 86 year old Male presented to the hospital after a fall for fracture of the femur, He was admitted to the hospital for further management. For his femur fracture, he was evaluated by Dr Fleming, s/p surgery See op report and ortho progress notes for details on procedure Medically the patient remained stable. The patient post op was not able to pass urine, and is needing a saldana catheter , he does admit to having increased frequency of urination even prior to the surgery. At this age its likely he has BPH. The patient has been started on flomax, and he will be advised to be seen by urology in 1 week for a voiding trial. No changes made to his home med list Discharge diagnosis: femur fracture - Time Spent with Patient Total time spent providing and/or coordinating discharge services: Less than 30 minutes Medical - DS: Exam - Constitutional Vitals: Vital Signs Temp Pulse Resp BP Pulse Ox 07/09/17 07:53 97.0 F 81 18 106/65 95 07/09/17 04:00 97.3 F 83 18 100/64 97 07/08/17 23:59 97.5 F 83 18 96/61 94 07/08/17 23:58 94 07/08/17 21:35 95 07/08/17 21:34 95 07/08/17 20:00 98.0 F 87 20 129/73 96 07/08/17 16:00 98.2 F 72 18 115/61 95 07/08/17 14:00 97.6 F 67 18 122/63 95 07/08/17 12:00 99.7 F H 100 H 18 92/57 96 Intake and Output 07/08/17 07/09/17 07/09/17 21:59 05:59 13:59 Intake Total 1760 / 1760 250 / 250 Output Total 460 / 460 700 / 700 Balance 1300 / 1300 -450 / -450 Intake: Oral 1760 / 1760 250 / 250 Output: Urine Catheter Amount 450 / 450 700 / 700 Void Amount Other: Meal Dinner Percent of Meal Consumed 100% Feeding Ability Independent Weight 160 lb 8 oz Additional comments: Constitutional; Afebrile, cooperative, alert, not in distress. SOAKER HIDES- AOOx3, Medical - DS: A/P - Patient/Caregiver Discharge Instructions Activity: as per physical therapy, increase activity as tolerated (as per ortho reccs) Diet: Regular Diet Additional Instructions: PT/ OT/ Wound care instructions as per ortho Pain management and DVT prophylaxis as per Ortho Patient to be seen in the urology clinic in [address] Shannon Go to the ER if chest pain, fever, shortness of breath or any other acute concerning symptom. Prescriptions: Aspirin [Ecotrin] 325 mg PO BID #60 tab.ec Docusate Sodium [Colace] 100 mg PO BID #60 cap HYDROcodone/APAP 10/325MG [[place] 10-325Mg] 1 - 2 tab PO Q4HP PRN #75 tab PRN Reason: Pain Level 3-6 - Follow up Plan Follow up with: Jamal Gudino PA-C [Primary Care Provider] - Disposition: er SNF Prognosis: Fair Rehab Potential: Fair I certify that the patient requires SNF services: Yes Overall status at discharge: patient is progressing back to baseline Medical - DS: Qual - VTE Deep Vein Thrombosis/Pulmonary Embolism Present on Admission: No
[2017-07-09] MEDS: DOCUSATE SODIUM 100 MG CAPSULE PO SCH (10:11)
[2017-07-09] MEDS: FERROUS SULFATE 325 MG TABLET PO SCH (10:11)
[2017-07-09] MEDS: CALCIUM (OYSTER SHELL) 500 MG TABLET PO SCH (10:11)
[2017-07-09] MEDS: VITAMIN D3 1,000 UNIT TABLET PO SCH (10:11)
[2017-07-09] MEDS: ASPIRIN 325 MG ENTERIC COATED TABLET PO SCH (10:12)
[2017-07-09] MEDS: MULTIVIT,THER IRON,CA,FA & MIN 1 TABLET PO SCH (10:12)
[2017-07-09] MEDS: HYDROCHLOROTHIAZIDE 25 MG TABLET PO SCH (12:08)
[2017-07-09] MEDS: LISINOPRIL 10 MG TABLET PO SCH (12:09)
== END 2017-07-09 12:50 | DRG 482 ==
LOC: ED 15:09 → MEDSUR 18:39
PROVIDERS: ADMIT Internal Medicine; ATTEND Internal Medicine

== ENCOUNTER 2018-04-04 20:35 | Observation (INO) ==
[2018-04-04] MEDS ORDERED: 0.9 % SODIUM CHLORIDE 1,000 ML IV ONE (20:42)
[2018-04-04] MEDS ORDERED: ASPIRIN 81 MG TAB.CHEW CHEWED ONE (20:45)
[2018-04-04] MEDS ORDERED: CARVEDILOL 6.25 MG TABLET PO ONE (20:46)
--- NOTE | 2018-04-04 20:49 | Emergency Department Note ---
Weakness HPI - General Chief complaint: Weakness Stated complaint: Weakness, Fall at 1500, Cough Time Seen by Provider: 04/04/18 20:40 Source: patient, family Mode of arrival: ambulatory Limitations: no limitations - History of Present Illness HPI Narrative: Patient felt weak this afternoon after getting up from a nap. He states he fell asleep in a chair with his leg up on a support arm of the chair. When he woke up he felt very dizzy and lightheaded when he tried to stand up and he fell to the floor. He denies any injury, he was unable to get up on his own initially and this afternoon has been feeling very weak to where he needed assistance was trying to get up. Notably when he arrived here his heart rate was between 70 and 80 and 144. It would alternate between tachycardia and sinus rhythm. He denies any chest pain, denies any shortness of breath, denies any recent ankle swelling no recent diarrhea and no recent nausea vomiting he has a slight cough but is not bringing up any productive phlegm. No fevers or chills, he has been in his usual state of health otherwise. Arrives via private vehicle. Complaint: generalized weakness - Related Data Home Medications Medication Instructions Recorded Confirmed calcium citrate 200 mg (950 mg) 500 mg PO QDAY tab 04/25/16 02/02/18 tablet cholecalciferol (vitamin D3) 1,000 1,000 unit PO DAILY 04/25/16 02/02/18 unit capsule multivitamin tablet 1 tab-cap PO QDAY 04/25/16 02/02/18 enzalutamide 40 mg capsule 80 mg PO QDAY cap 08/12/16 02/02/18 Ferrous Sulfate 325 mg PO BIDCC 04/22/17 02/02/18 aspirin 81 mg chewable tablet 81 mg PO 3XW tab 09/17/17 02/02/18 Previous Rx's Medication Instructions Recorded Docusate Sodium [Colace] 100 mg PO BID #60 cap 07/08/17 tamsulosin 0.4 mg capsule 0.4 mg PO HS #30 cap 10/13/17 simvastatin 20 mg tablet 20 mg PO QPM #90 tab 01/08/18 lisinopril 10 mg tablet 10 mg PO QDAY #90 tab 01/12/18 hydrochlorothiazide 12.5 mg tablet 12.5 mg PO QDAY #90 tab 02/10/18 Allergies Allergy/AdvReac Type Severity Reaction Status Date / Time Amoxicillin AdvReac Mild Rash Verified 04/04/18 20:39 Review of Systems All systems ED: reviewed and negative except as stated. Constitutional: Denies: fever, chills ENT ED: Denies: ear pain Cardiovascular: Reports: palpitations. Denies: chest pain Respiratory: Reports: cough. Denies: shortness of breath Past Medical History - Past Medical History Source: obtained from family, nursing notes reviewed Medical history: Reports: cancer (prostate), hyperlipidemia, hypertension. Denies: asthma, CHF, COPD, DVT, myocardial infarction, pulmonary embolus Psychiatric history: Denies: anxiety, depression Surgical history ED: Reports: herniorrhaphy, prostatectomy, other (Prostate surgery lateral knee replacements) Family history: Reports: no significant family history - Social History smoking status: Former smoker Alcohol use: Reports: Frequently (ususally 1/day) Drug use: Reports: none. Denies: marijuana Physical Exam Limitations: no limitations General appearance: alert Head: atraumatic, normocephalic, normal inspection Eye: Present: normal appearance, PERRL, EOMI. Absent: scleral icterus, conjunctival injection, nystagmus ENT: normal exam, normal oropharynx, mucous membranes moist, TM's normal bilaterally Neck: Present: normal inspection, full ROM, trachea midline. Absent: tendernes s, meningismus Chest: Present: normal inspection, symmetric chest wall rise. Absent: tenderness Respiratory: Present: normal lung sounds bilaterally. Absent: respiratory distress, rales/crackles, wheezes Cardiovascular: Present: regular rate, normal heart sounds, gallop Abdominal: Present: soft, normal bowel sounds. Absent: distention, tenderness, guarding : Present: normal inspection Extremities: Present: normal inspection, full ROM Back: Present: normal inspection. Absent: CVA tenderness (R), CVA tenderness (L) Neurological: Present: alert, oriented X3, CN II-XII intact Psychiatric: Present: normal affect Skin: Present: warm, dry, intact. Absent: rash Course - Reevaluation(s) Reevaluation #1: Patient started on IV fluids up. Baseline labs ordered. It turns out his troponin was negative at 0.2. His proBNP however elevated at almost 1000. Chest x-ray not showing any fluid overload, however borderline cardiomegaly. Final impression is intermittent atrial flutter. A plan he was started on carvedilol, he will need to be monitored, baseline orders initiated for Dr. Draper Vital Signs Temperature 98.3 F 04/04/18 20:36 Pulse Rate 93 H 04/04/18 20:36 Respiratory Rate 19 04/04/18 20:36 Pulse Oximetry (%) 94 04/04/18 20:36 Temperature 98.3 F 04/04/18 20:36 Pulse Rate 93 H 04/04/18 20:36 Respiratory Rate 19 04/04/18 20:36 Pulse Oximetry (%) 94 04/04/18 20:36 Weakness - MDM Narrative Medical decision making narrative: Impression is #1 CHF number to intermittent atrial flutter, symptomatic with near syncopal episode. - Lab Data Result diagrams: 04/04/18 20:45 04/04/18 20:45 Lab Results 04/04/18 04/04/18 04/04/18 Range/Units 20:45 20:45 20:45 WBC 9.2 (4.5-11.0) K/mcL RBC 4.61 (4.50-5.90) M/mcL Hgb 14.5 (13.5-16.5) g/dL Hct 43.4 (41.0-55.0) % POC Hct 45.0 (41.0-55.0) % MCV 94.2 (80.0-100.0) fL MCH 31.4 (26.0-34.0) pg MCHC 33.4 (31.0-36.0) g/dL RDW 14.2 (11.5-14.5) % Plt Count 148 (140-440) K/mcL MPV 8.6 (7.4-10.4) fL Gran % 81.5 H (38.0-78.0) % Lymph % (Auto) 12.3 L (15.5-49.0) % Sterling % (Auto) 6.0 (1.0-12.0) % Eos % (Auto) 0.1 (0.0-7.0) % Baso % (Auto) 0.1 (0.0-2.0) % Gran # 7.5 (1.8-8.0) K/mcL Lymph # (Auto) 1.1 L (1.5-4.8) K/mcL Sterling # (Auto) 0.6 (0.1-0.9) K/mcL Eos # (Auto) 0 (0.0-0.7) K/mcL Baso # (Auto) 0 (0.0-0.3) K/mcL POC Sodium 136 (133-145) mmol/L Sodium 134 (133-145) mmol/L POC Potassium 3.7 (3.3-5.1) mmol/L Potassium 3.6 (3.3-5.1) mmol/L POC Chloride 100 (96-108) mmol/L Chloride 100 (96-108) mmol/L Carbon Dioxide 24 (22-30) mmol/L POC Total CO2 23 (22-30) mmol/L Anion Gap 10.0 (8-16) POC BUN 19 (8-23) mg/dl BUN 18 (8-23) mg/dl Creatinine 1.1 (0.7-1.2) mg/dl POC Creatinine 1.1 (0.7-1.2) mg/dl GFR Calculation 59 BUN/Creatinine Ratio Glucose 108 H (70-105) mg/dL POC Glucose 109 H (70-105) mg/dL Calcium 9.2 (8.6-10.4) mg/dl POC WB Ioniz Calcium 1.11 L (1.16-1.32) mmol/L Magnesium 2.0 (1.6-2.5) mg/dL Total Bilirubin 0.5 (0.0-1.0) mg/dL AST 18 (0-37) U/l ALT 13 (0-40) U/l Alkaline Phosphatase 59 (39-117) U/L Total Creatine Kinase 315 H (24-195) IU/L CK-MB (CK-2) 2.8 (0-4.9) ng/ml Troponin T 0.02 (0-0.03) ng/ml NT-Pro-B Natriuret Pep 942.6 H (0-450) pg/ml Total Protein 6.2 (5.9-8.4) gm/dL Albumin 3.9 (3.2-5.2) gm/dL Globulin 2.3 (2.2-3.7) gm/dL Albumin/Globulin Ratio 1.7 (1.0-2.3) TSH (0.27-5.01) uIU/ml Free T4 (0.7-1.7) ng/dl 04/04/18 Range/Units 20:45 WBC (4.5-11.0) K/mcL RBC (4.50-5.90) M/mcL Hgb (13.5-16.5) g/dL Hct (41.0-55.0) % POC Hct (41.0-55.0) % MCV (80.0-100.0) fL MCH (26.0-34.0) pg MCHC (31.0-36.0) g/dL RDW (11.5-14.5) % Plt Count (140-440) K/mcL MPV (7.4-10.4) fL Gran % (38.0-78.0) % Lymph % (Auto) (15.5-49.0) % Sterling % (Auto) (1.0-12.0) % Eos % (Auto) (0.0-7.0) % Baso % (Auto) (0.0-2.0) % Gran # (1.8-8.0) K/mcL Lymph # (Auto) (1.5-4.8) K/mcL Sterling # (Auto) (0.1-0.9) K/mcL Eos # (Auto) (0.0-0.7) K/mcL Baso # (Auto) (0.0-0.3) K/mcL POC Sodium (133-145) mmol/L Sodium Cancelled (133-145) mmol/L POC Potassium (3.3-5.1) mmol/L Potassium Cancelled (3.3-5.1) mmol/L POC Chloride (96-108) mmol/L Chloride Cancelled (96-108) mmol/L Carbon Dioxide Cancelled (22-30) mmol/L POC Total CO2 (22-30) mmol/L Anion Gap Cancelled (8-16) POC BUN (8-23) mg/dl BUN Cancelled (8-23) mg/dl Creatinine Cancelled (0.7-1.2) mg/dl POC Creatinine (0.7-1.2) mg/dl GFR Calculation Cancelled BUN/Creatinine Ratio Cancelled Glucose Cancelled (70-105) mg/dL POC Glucose (70-105) mg/dL Calcium Cancelled (8.6-10.4) mg/dl POC WB Ioniz Calcium (1.16-1.32) mmol/L Magnesium (1.6-2.5) mg/dL Total Bilirubin Cancelled (0.0-1.0) mg/dL AST Cancelled (0-37) U/l ALT Cancelled (0-40) U/l Alkaline Phosphatase Cancelled (39-117) U/L Total Creatine Kinase (24-195) IU/L CK-MB (CK-2) (0-4.9) ng/ml Troponin T (0-0.03) ng/ml NT-Pro-B Natriuret Pep (0-450) pg/ml Total Protein Cancelled (5.9-8.4) gm/dL Albumin Cancelled (3.2-5.2) gm/dL Globulin Cancelled (2.2-3.7) gm/dL Albumin/Globulin Ratio Cancelled (1.0-2.3) TSH 1.60 (0.27-5.01) uIU/ml Free T4 0.96 (0.7-1.7) ng/dl Disposition Pt seen by DEPARTMENT HEAD/PA only: No Clinical Impression: Atrial flutter, paroxysmal Disposition: Xfer As Outpt/Obs ([facility]) Condition: Good Referrals: Jamal Gudino PA-C [Primary Care Provider] -
[2018-04-04] MEDS ORDERED: LACTATED RINGERS 1,000 ML IV SCH (21:00)
[2018-04-04 21:11] LABS: Basophils # (Auto) 0 K/mcL (0.0-0.3); Basophils % (Auto) 0.1 % (0.0-2.0); Eosinophils # (Auto) 0 K/mcL (0.0-0.7); Eosinophils % (Auto) 0.1 % (0.0-7.0); Granulocytes % (Auto) 81.5 % (38.0-78.0); Lymphocytes # (Auto) 1.1 K/mcL (1.5-4.8); Lymphocytes % (Auto) 12.3 % (15.5-49.0); Mean Cell Volume 94.2 fL (80.0-100.0); Mean Corpuscular HGB Conc 33.4 g/dL (31.0-36.0); Monocytes # (Auto) 0.6 K/mcL (0.1-0.9); Platelet Count 148 K/mcL (140-440); RBC 4.61 M/mcL (4.50-5.90); Red Cell Distribution Width 14.2 % (11.5-14.5)
[2018-04-04 21:33] LABS: Creatine Kinase MB 2.8 ng/ml (0-4.9); proBNP 942.6 pg/ml (0-450)
[2018-04-04 21:40] LABS: Free T4 (Free Thyroxine) 0.96 ng/dl (0.7-1.7)
[2018-04-04 21:52] LABS: ALT/SGPT 13 U/l (0-40); Albumin 3.9 gm/dL (3.2-5.2); Albumin/Globulin Ratio 1.7 (1.0-2.3); Alkaline Phosphatase 59 U/L (39-117); Blood Urea Nitrogen 18 mg/dl (8-23); Creatine Kinase 315 IU/L (24-195)
[2018-04-04] MEDS ORDERED: 0.45 % SODIUM CHLORIDE 1,000 ML IV SCH (22:15)
--- NOTE | 2018-04-04 23:22 | Internal Med History&Physical ---
Medical - H&P: [facility] Patient information: Note initiated : 04/04/18 at 11:22 pm Service Date, if different from initiated Date: [] Patient: Noel Dee 87 y/o M admitted on 04/04/18 for Weakness, Fall at 1500, Cough. Chief Complaint: [] Chief complaint: weakness History of present illness: Mr. Dee is a 87 year old M was brought into [place] ER after sustaining an episode of near syncope after he fell on the ground and was unable to get up. Symptoms started over the last 12 hours with increasing lightheadedness, dizziness, weakness shortness of breath, Unsteady gait and inability to walk. Patient denies associated chest palpitation, vertigo symptoms but endorses lightheadedness. He endorses to associated yellow-green productive sputum over the last 3 days. He denies unilateral weakness. Denies tearing neck pain or thunderclap headache or seizure losing consciousness. He was subsequently brought into [place] ER initial work significant for tachyarrhythmia with variable heart rate between 18 and 140. He was started on Coreg. Otherwise initial workup was unremarkable. Sincerely hospitalist service was consulted in light of above symptoms. At the time evaluation patient is accompanied with his friend. He was able to endorse history as above. Weakness persists. He is currently in sinus. He denies fever diarrhea dysuria bloody chest pain, myalgia, shaking chills. He denies recent changes in medications or NSAID intake. Review of systems 10 point review of system was performed and is negative except for one discussed above Medical - H&P: [facility] Medical history: Medical History (Last Updated 07/30/17 @ 11:23 by Jamal Gudino PA-C) Anemia (Chronic) Femur fracture, right (Chronic) Osteoarthritis of knees, bilateral (Chronic) Malignant neoplasm skin of ear (Chronic) Vitamin D deficiency (Chronic) Prostate cancer (Chronic) Pre-diabetes (Chronic) Macular degeneration (Chronic) Insomnia (Chronic) Hypertension (Chronic) Hyperlipidemia (Chronic) Basal cell carcinoma of skin (Chronic) Surgical history: History of total right knee replacement (Chronic) May 23, 2017, Dr. Lara. History of open reduction and internal fixation (ORIF) procedure (Chronic) RIGHT femur June 2017 Dr. Lara History of total left knee replacement (Chronic) 12/25/2016, Dr. Fleming. History of prostate surgery (Chronic) H/O hernia repair (Chronic) Pertinent family history: Mother Genetic carrier of other disease Diabetes mellitus Brother Diabetes mellitus Social history: occupational status: retired smoking status: Former smoker alcohol intake frequency: holiday/special occasion only substance use type: does not use Functional capacity: independent ambulation Drug use: none Alcohol use: none Medical - H&P: Meds Home Medications Medication Instructions Recorded Confirmed Type cholecalciferol (vitamin D3) 1,000 1,000 unit PO DAILY 04/25/16 04/04/18 History unit capsule multivitamin tablet 1 tab-cap PO QDAY 04/25/16 04/04/18 History enzalutamide 40 mg capsule 80 mg PO QDAY cap 08/12/16 04/04/18 History aspirin 81 mg chewable tablet 81 mg PO 3XW tab 09/17/17 04/04/18 History simvastatin 20 mg tablet 20 mg PO QPM #90 tab 01/08/18 04/04/18 Rx lisinopril 10 mg tablet 10 mg PO QDAY #90 tab 01/12/18 04/04/18 Rx hydrochlorothiazide 12.5 mg tablet 12.5 mg PO QDAY #90 tab 02/10/18 04/04/18 Rx Allergies Allergy/AdvReac Type Severity Reaction Status Date / Time Amoxicillin AdvReac Mild Rash Verified 04/04/18 20:39 Medical - H&P: Exam - Constitutional Vitals: Temp Pulse Resp BP Pulse Ox 98.3 F 55 L 19 92/50 95 04/04/18 22:46 04/04/18 22:46 04/04/18 22:46 04/04/18 22:46 04/04/18 22:46 General appearance: no acute distress Exam: Alert oriented nonlabored breathing Eye movements symmetrical Oral cavity dry No ear nose discharge Head normocephalic atraumatic Neck no lymphadenopathy S1-S2 occasionally irregular rhythm Diminished breath sounds bases Abdomen soft nontender Lower extremity no cyanosis clubbing Skin no suspicious lesion Psych alert cooperative mild anxiety Neuro nonfocal Medical - H&P: Reslt - Labs CBC & Chem 7: 04/05/18 04:00 04/05/18 04:00 Labs: Short CBC 04/04/18 Range/Units 20:45 WBC 9.2 (4.5-11.0) K/mcL Hgb 14.5 (13.5-16.5) g/dL Hct 43.4 (41.0-55.0) % Plt Count 148 (140-440) K/mcL BMP 04/04/18 04/04/18 20:45 20:45 Sodium 134 Cancelled Potassium 3.6 Cancelled Chloride 100 Cancelled Carbon Dioxide 24 Cancelled BUN 18 Cancelled Creatinine 1.1 Cancelled Glucose 108 H Cancelled Calcium 9.2 Cancelled Cardiac Enzymes 04/04/18 04/04/18 Range/Units 20:45 20:45 Total Creatine Kinase 315 H (24-195) IU/L CK-MB (CK-2) 2.8 (0-4.9) ng/ml Troponin T 0.02 (0-0.03) ng/ml Liver Function 04/04/18 04/04/18 Range/Units 20:45 20:45 Total Bilirubin 0.5 Cancelled (0.0-1.0) mg/dL AST 18 Cancelled (0-37) U/l ALT 13 Cancelled (0-40) U/l Alkaline Phosphatase 59 Cancelled (39-117) U/L Albumin 3.9 Cancelled (3.2-5.2) gm/dL Medical - H&P: A/P (1) Syncope and collapse Current visit: Yes Status: Acute * Syncope secondary to weakness. However rule out cardiac etiology, admit for telemetry monitoring/further workup. Check orthostatics. * Hypoxic respiratory insufficiency-continue supplemental oxygen/pulmonary toilet * Acute bronchitis/COPD flare-continue bronchodilators. Start Levaquin. Repeat chest imaging * History of hypertension continue thiazide/NORMA inhibitor * Hyperlipidemia continue statin * Full code * Prophylaxis heparin Plan * Telemetry admit * Echocardiogram * Bronchodilators/pulmonary toilet * Prior medical condition management on home meds * PT OT nutrition support
[2018-04-04] MEDS ORDERED: LEVOFLOXACIN 750 MG/150 ML BAG IV SCH (23:30)
[2018-04-04] MEDS ORDERED: ONDANSETRON 4 MG/2 ML VIAL IV PRN (23:30)
[2018-04-04] MEDS ORDERED: guaiFENesin/CODEINE 10 ML UDC PO PRN (23:30)
[2018-04-04] MEDS ORDERED: ACETAMINOPHEN 325 MG TABLET PO PRN (23:30)
[2018-04-04] MEDS ORDERED: MAGNESIUM SULFATE 2 GM/50 ML BAG IV PRN (23:30)
[2018-04-04] MEDS ORDERED: POTASSIUM CHLORIDE 20 MEQ PACKET PO PRN (23:30)
[2018-04-04] MEDS ORDERED: MAGNESIUM HYDROXIDE 30 ML ORAL.SUSP PO PRN (23:30)
[2018-04-04] MEDS ORDERED: ASPIRIN 81 MG TAB.CHEW PO SCH (23:30)
[2018-04-05] MEDS ORDERED: LEVOFLOXACIN 750 MG/150 ML BAG IV ONE (00:45)
[2018-04-05] MEDS ORDERED: METOPROLOL TARTRATE 5 MG/5 ML VIAL IV PRN (01:39)
[2018-04-05] MEDS: METOPROLOL TARTRATE 5 MG/5 ML VIAL IV SCH ×2 (02:30→02:34)
[2018-04-05 04:56] LABS: Mean Cell Volume 94.5 fL (80.0-100.0); Mean Corpuscular HGB Conc 34.5 g/dL (31.0-36.0); Platelet Count 125 K/mcL (140-440); RBC 3.93 M/mcL (4.50-5.90)
[2018-04-05 05:03] LABS: ALT/SGPT 11 U/l (0-40); Albumin 3.2 gm/dL (3.2-5.2); Albumin/Globulin Ratio 1.7 (1.0-2.3); Alkaline Phosphatase 47 U/L (39-117); Bilirubin,Direct < 0.2 mg/dL (0.0-0.3); Blood Urea Nitrogen 15 mg/dl (8-23); Gamma Glutamyl Transpeptidase 12 U/L (8-61); Uric Acid 5.1 mg/dL (2.5-8.0)
[2018-04-05] MEDS: 0.9 % SODIUM CHLORIDE 10 ML SYRINGE IV SCH ×3 (05:55→21:33)
[2018-04-05 06:32] LABS: Band Neutrophils % 1 % (0-10); Lymphocytes % 14 % (15-49); Monocytes % (Manual) 4 % (1-12); Platelet Estimate DECREASED (NORMAL); RBC Morphology NORMAL (NORMAL); Segmented Neutrophils % 81 % (38-78)
[2018-04-05] MEDS: CARVEDILOL 3.125 MG TABLET PO SCH ×2 (07:58→17:22)
[2018-04-05] MEDS ORDERED: CARVEDILOL 3.125 MG TABLET PO SCH (08:00)
--- NOTE | 2018-04-05 08:47 | XRay Report ---
HISTORY: Fell, weakness and cough FINDINGS: Right diaphragm is moderately elevated. There is a thin band of scar tissue above the right diaphragm. The lungs are otherwise clear. The heart is mildly enlarged with left ventricular prominence. There is no congestive heart failure or pleural effusion. No widening of the mediastinum is present. No rib fracture is seen. There has been no significant change since 07/06/17. IMPRESSION: No acute abnormality Interpreted and Authenticated by: Agustin Chavez 04/05/18
[2018-04-05] MEDS: MULTIVIT,THER IRON,CA,FA & MIN 1 TABLET PO SCH (08:57)
[2018-04-05] MEDS: LISINOPRIL 10 MG TABLET PO SCH (08:57)
[2018-04-05] MEDS: DOCUSATE SODIUM 100 MG CAPSULE PO SCH ×2 (08:57→21:33)
[2018-04-05] MEDS: HEPARIN 5,000 UNIT/ML VIAL SQ SCH ×2 (08:57→21:32)
[2018-04-05] MEDS ORDERED: LISINOPRIL 10 MG TABLET PO SCH (09:00)
[2018-04-05] MEDS ORDERED: ENZALUTAMIDE 80 MG PO SCH (09:00)
[2018-04-05] MEDS: IPRATROPIUM/ALBUTEROL 3 ML AMPUL.NEB NEB PRN ×2 (09:35→20:46)
[2018-04-05] MEDS: BUDESONIDE 0.5 MG/2 ML AMPUL.NEB NEB SCH ×2 (09:35→20:46)
--- NOTE | 2018-04-05 10:15 | Internal Med Progress Note ---
Medical - PN: Subj Patient information: Note initiated : 04/05/18 at 10:10 am Service Date, if different from initiated Date: [] Patient: Noel Dee 87 y/o M admitted on 04/04/18 for Weakness, Fall at 1500, Cough. Chief Complaint: [] Interval history: Mr. Dee is a 87 year old M was brought into [place] ER after sustaining an episode of near syncope after he fell on the ground and was unable to get up. Symptoms started over the last 12 hours with increasing lightheadedness, dizziness, weakness shortness of breath, Unsteady gait and inability to walk. Patient denies associated chest palpitation, vertigo symptoms but endorses lightheadedness. He endorses to associated yellow-green productive sputum over the last 3 days. He denies unilateral weakness. Denies tearing neck pain or thunderclap headache or seizure losing consciousness. He was subsequently brought into [place] ER initial work significant for tachyarrhythmia with variable heart rate between 18 and 140. He was started on Coreg. Otherwise initial workup was unremarkable. Sincerely hospitalist service was consulted in light of above symptoms. 04/05-patient clinically improved. Endorses that his weakness is better. Await physical therapy evaluation. No overnight telemetry events. Good appetite. Continue breathing treatment/antibiotic coverage for URI. Await cultures. Echocardiogram pending. T-max 100.7. No family at bedside. No concerns expressed by nursing staff - Constitutional Vitals: Vital Signs Temp Pulse Resp BP Pulse Ox 99.4 F H 71 16 137/65 96 04/05/18 06:54 04/05/18 09:35 04/05/18 09:35 04/05/18 06:54 04/05/18 06:54 Period Temp Pulse Resp BP Sys/Mackey Pulse Ox Last 24 Hr 98.3 F-100.7 F 51-114 15-29 87-137/47-77 90-97 Intake and Output 04/04/18 04/05/18 04/05/18 21:59 05:59 13:59 Intake Total 1050 Output Total 400 200 Balance 650 -200 Weight 148 lb 155 lb 14.4 oz Intake & Output: Intake & Output 04/04/18 04/05/18 04/05/18 21:59 05:59 13:59 Intake Total 1050 Output Total 400 200 Balance 650 -200 Weight 148 lb 155 lb 14.4 oz Intake: IV 1050 Lactated Ringers 1,000 ml @ 100 900 mls/hr IV .Q10H [facility] Rx#: [id number] Output: Urine Catheter Amount 200 Void Amount 400 Other: Urine Appearance Clear Urine Color Bright Yellow Urine Odor Normal General appearance: no acute distress Exam: Alert oriented Nonlabored breathing nondistended abdomen No telemetry events except for occasional irregular rhythm No anxiety Medical - PN: Obj Da - Labs CBC & Chem 7: 04/05/18 04:00 04/05/18 04:00 Labs: Abnormal Lab Results 04/05/18 04/05/18 04/04/18 04:00 04:00 20:45 RBC 3.93 L Hgb 12.8 L Hct 37.1 L Plt Count 125 L Gran % Lymph % (Auto) Lymph # (Auto) Seg Neutrophils % 81 H Lymphocytes % 14 L Platelet Estimate Decreased A Glucose 108 H POC Glucose 109 H Calcium 8.4 L POC WB Ioniz Calcium 1.11 L Total Creatine Kinase 315 H NT-Pro-B Natriuret Pep 942.6 H Total Protein 5.1 L Globulin 1.9 L 04/04/18 20:45 RBC Hgb Hct Plt Count Gran % 81.5 H Lymph % (Auto) 12.3 L Lymph # (Auto) 1.1 L Seg Neutrophils % Lymphocytes % Platelet Estimate Glucose POC Glucose Calcium POC WB Ioniz Calcium Total Creatine Kinase NT-Pro-B Natriuret Pep Total Protein Globulin Meds: Medications Acetaminophen (Tylenol) 650 mg PO Q4-6HP PRN PRN Reason: PAIN/FEVER > 101 Albuterol/Ipratropium (Duoneb) 3 ml NEB Q4HP PRN PRN Reason: Shortness Of Breath Last Admin: 04/05/18 09:35 Dose: 3 ml Documented by: Aspirin (Aspirin) 81 mg PO MoWeFr@0900 [facility] Budesonide (Pulmicort) 0.5 mg NEB Q12 [facility] Last Admin: 04/05/18 09:35 Dose: 0.5 mg Documented by: Carvedilol (Coreg) 3.125 mg PO BIDCC [facility] Last Admin: 04/05/18 07:58 Dose: 3.125 mg Documented by: Docusate Sodium (Colace) 100 mg PO BID [facility] Last Admin: 04/05/18 08:57 Dose: 100 mg Documented by: Guaifenesin/Codeine Phosphate (Robitussin Ac) 10 ml PO Q4HP PRN PRN Reason: Cough Heparin Sodium (Porcine) (Heparin) 5,000 unit SQ Q12 [facility] Last Admin: 04/05/18 08:57 Dose: 5,000 unit Documented by: Magnesium Sulfate (Magnesium Sulfate) 2 gm in 50 mls @ 50 mls/hr IV UD PRN PRN Reason: MG = or < 1.7 Levofloxacin (Levaquin) 750 mg in 150 mls @ 100 mls/hr IV Q48H [facility] Iron Carb/Multivit/[place]/Folic Acid (Multivitamin W/Minerals) 1 tab PO DAILY [facility] Last Admin: 04/05/18 08:57 Dose: 1 tab Documented by: Lisinopril (Zestril) 10 mg PO QDAY [facility] Last Admin: 04/05/18 08:57 Dose: 10 mg Documented by: Magnesium Hydroxide (Milk Of Magnesia) 30 ml PO HSP PRN PRN Reason: Constipation Metoprolol Tartrate (Lopressor) 5 mg IV Q5M PRN PRN Reason: Heart rate > 100 Ondansetron HCl (Zofran) 4 mg IV Q4-6HP PRN PRN Reason: Nausea And Vomiting Enzalutamide [Xtandi (] 40 Mg Capsule) 1 dose PO DAILY [facility] Potassium Chloride (Klor-Con) 40 meq PO DAILYP PRN PRN Reason: K+ < 3.5 Senna/Docusate Sodium (Senna Plus Tablet) 1 tab PO HS [facility] Simvastatin (Zocor) 20 mg PO QPM [facility] Sodium Chloride (Saline Flush) 10 ml IV Q8 [facility] Last Admin: 04/05/18 05:55 Dose: 10 ml Documented by: Medical - PN: A/P - Time Spent With Patient Total time spent is greater than 50% in coordination of care (as documented) at patient's floor/unit and/or counseling patient: 25 - 35 minutes (1) Syncope and collapse Status: Acute Assessment and plan: * Syncope - likely secondary to to weakness. Clinically improving. Check orthostatics. No significant arrhythmias noted. Await echocardiogram. No overnight seizure activity, stable hemodynamics. * Hypoxic respiratory insufficiency-continue supplemental oxygen/pulmonary toilet * Acute bronchitis/COPD flare-Continue inhaled bronchodilators/antibiotics. Await cultures * History of hypertension continue thiazide/NORMA inhibitor * Generalized weakness continue aggressive PT OT/nutrition support * Hyperlipidemia continue statin * Full code * Prophylaxis heparin Plan * Orthostatics * Await echocardiogram * Continue bronchodilators/pulmonary toilet * Pre-existing medical condition management on home meds * PT OT * Dietary support Current Visit: Yes Medical - PN: Qual - VTE Deep Vein Thrombosis/Pulmonary Embolism Present on Admission: No
[2018-04-05] MEDS ORDERED: SENNOSIDES/DOCUSATE SODIUM 1 TAB TABLET PO SCH (21:00)
[2018-04-05] MEDS ORDERED: SIMVASTATIN 20 MG TABLET PO SCH ×2 (21:00)
[2018-04-06 05:55] LABS: Mean Cell Volume 96.2 fL (80.0-100.0); Mean Corpuscular HGB Conc 33.6 g/dL (31.0-36.0); Platelet Count 121 K/mcL (140-440); RBC 4.09 M/mcL (4.50-5.90); Red Cell Distribution Width 14.4 % (11.5-14.5)
[2018-04-06] MEDS: 0.9 % SODIUM CHLORIDE 10 ML SYRINGE IV SCH ×2 (05:57→10:30)
[2018-04-06 06:43] LABS: Band Neutrophils % 8 % (0-10); Lymphocytes % 12 % (15-49); Monocytes % (Manual) 11 % (1-12); Platelet Estimate DECREASED (NORMAL); RBC Morphology NORMAL (NORMAL); Segmented Neutrophils % 67 % (38-78)
[2018-04-06 07:00] LABS: ALT/SGPT 15 U/l (0-40); Albumin 3.2 gm/dL (3.2-5.2); Albumin/Globulin Ratio 1.5 (1.0-2.3); Alkaline Phosphatase 46 U/L (39-117); Bilirubin,Direct < 0.2 mg/dL (0.0-0.3); Blood Urea Nitrogen 21 mg/dl (8-23); Gamma Glutamyl Transpeptidase 14 U/L (8-61); Uric Acid 5.1 mg/dL (2.5-8.0)
[2018-04-06] MEDS: LISINOPRIL 10 MG TABLET PO SCH (08:47)
[2018-04-06] MEDS: DOCUSATE SODIUM 100 MG CAPSULE PO SCH (08:47)
[2018-04-06] MEDS: HEPARIN 5,000 UNIT/ML VIAL SQ SCH (08:48)
[2018-04-06] MEDS: MULTIVIT,THER IRON,CA,FA & MIN 1 TABLET PO SCH (08:48)
[2018-04-06] MEDS ORDERED: LEVOFLOXACIN 750 MG/150 ML BAG IV SCH (09:00)
[2018-04-06] MEDS ORDERED: ASPIRIN 81 MG TAB.CHEW PO SCH (09:00)
[2018-04-06] MEDS: BUDESONIDE 0.5 MG/2 ML AMPUL.NEB NEB SCH (09:02)
[2018-04-06] MEDS: IPRATROPIUM/ALBUTEROL 3 ML AMPUL.NEB NEB PRN (09:02)
[2018-04-06] MEDS: CARVEDILOL 3.125 MG TABLET PO SCH (09:09)
--- NOTE | 2018-04-06 11:11 | Discharge Summary ---
Medical - DS: Prov Patient information: Note initiated : 04/06/18 at 11:09 am Service Date, if different from initiated Date: [] Patient: Noel Dee 87 y/o M admitted on 04/04/18 for Weakness, Fall at 1500, Cough. Chief Complaint: [] Date of admission: 04/04/18 22:38 Discharge date: 04/06/18 Primary care physician: Jamal Gudino Consults: 04/04/18 Consult to Physician [CONS] Stat Comment: Consulting Provider: Francisco Strickland Reason For Exam: Physician to Consult Medical - DS: Meds - Discharge Medications Prescriptions: Levofloxacin [Levaquin] 750 mg PO DAILY #3 tablet Active and Home Medications: Home Medications cholecalciferol (vitamin D3) 1,000 unit capsule 1,000 unit PO DAILY 04/25/16 [History Confirmed 04/04/18 Last Taken 04/04/18 07:00] multivitamin tablet 1 tab-cap PO QDAY 04/25/16 [History Confirmed 04/04/18 Last Taken 04/04/18 07:00] enzalutamide 40 mg capsule 80 mg PO QDAY cap 08/12/16 [History Confirmed 04/04/18 Last Taken 04/04/18 07:00] aspirin 81 mg chewable tablet 81 mg PO 3XW tab 09/17/17 [History Confirmed 04/04/18 Last Taken 04/03/18 07:00] simvastatin 20 mg tablet 20 mg PO QPM #90 tab 01/08/18 [Rx Confirmed 04/04/18 Last Taken 04/03/18 21:00] lisinopril 10 mg tablet 10 mg PO QDAY #90 tab 01/12/18 [Rx Confirmed 04/04/18 Last Taken 04/04/18 07:00] hydrochlorothiazide 12.5 mg tablet 12.5 mg PO QDAY #90 tab 02/10/18 [Rx Confirmed 04/04/18 Last Taken 04/04/18 07:00] Levofloxacin [Levaquin] 750 mg PO DAILY #3 tablet 04/06/18 [Rx Last Taken Unknown] Medical - DS: Hosp Hospital course: Discharge diagnosis * Syncope - likely secondary to to weakness. Clinically resolved. Ambulating without symptoms. No overnight telemetry events except for heart rate in mid 40s. Subsequently Coreg discontinued. No episodes of tachyarrhythmia noted. Orthostatics negative. Echocardiogram no valvular abnormality. EF within normal limits. Schedule outpatient Holter monitoring on discharge. * Hypoxic respiratory insufficiency-secondary to clinical pneumonia. Clinically improved on antibiotic coverage. Now on room air. * Acute bronchitis/COPD flare-Continue inhaled bronchodilators/antibiotics for additional 3 days. * History of hypertension continue thiazide/NORMA inhibitor * Generalized weakness continue aggressive PT OT/nutrition support * Hyperlipidemia continue statin * History of prostate cancer on antiandrogen Brief hospital course Mr. Dee is a 87 year old M [facility] after sustaining an episode of near syncope after he fell on the ground and was unable to get up. Symptoms started over the last 12 hours with increasing lightheadedness, dizziness, weakness shortness of breath, Unsteady gait and inability to walk. Patient denies associated chest palpitation, vertigo symptoms but endorses lightheadedness. He endorses to associated yellow-green productive sputum over the last 3 days. He denies unilateral weakness. Denies tearing neck pain or thunderclap headache or seizure losing consciousness. He was subsequently brought into [facility] ER initial work significant for t achyarrhythmia with variable heart rate between 18 and 140. He was started on Coreg. Otherwise initial workup was unremarkable. Sincerely hospitalist service was consulted in light of above symptoms. 04/05-patient clinically improved. Endorses that his weakness is better. Await physical therapy evaluation. No overnight telemetry events. Good appetite. Continue breathing treatment/antibiotic coverage for URI. Await cultures. Echocardiogram pending. T-max 100.7. No family at bedside. No concerns expressed by nursing staff 04/06-patient doing well. Tolerating physical therapy and ambulated in the hallway without any symptoms. No overnight event no telemetry tachyarrhythmias. Negative orthostatics. Patient feeling back at baseline. Likely precipitate by weakness and COPD flare. However will require 30-day Holter monitoring which was scheduled on discharge. Continue additional 3 days antibiotic. Discharge instructions as below Discharge diagnosis: . - Time Spent with Patient Total time spent providing and/or coordinating discharge services: Greater than 30 minutes Medical - DS: Exam - Constitutional Vitals: Vital Signs Temp Pulse Pulse Pulse Pulse Pulse Resp 04/06/18 09:12 66 17 04/06/18 09:02 04/06/18 08:00 04/06/18 07:58 98.5 F 65 16 04/06/18 05:00 19 04/06/18 04:00 46 L 13 04/06/18 03:47 97.7 F 45 L 18 04/06/18 03:31 44 L 14 04/06/18 03:16 36 L 16 04/06/18 03:01 45 L 15 04/06/18 02:52 47 L 25 H 04/06/18 02:46 49 L 13 04/06/18 02:34 88 20 04/06/18 02:00 90 15 04/06/18 01:30 120 H 16 04/06/18 01:00 55 L 13 04/06/18 00:00 98.8 F 51 L 16 04/05/18 23:00 17 04/05/18 22:47 19 04/05/18 20:48 64 22 04/05/18 20:46 61 15 04/05/18 19:16 100.1 F H 69 15 04/05/18 16:06 16 04/05/18 16:00 98.9 F 15 04/05/18 14:05 15 04/05/18 11:58 99.8 F H 17 04/05/18 11:54 15 04/05/18 11:53 13 04/05/18 11:52 76 71 69 04/05/18 11:51 20 BP BP BP BP BP BP Pulse Ox 04/06/18 09:12 04/06/18 09:02 93 04/06/18 08:00 95 04/06/18 07:58 110/58 95 04/06/18 05:00 04/06/18 04:00 98 04/06/18 03:47 96/57 94 04/06/18 03:31 83/47 98 04/06/18 03:16 98/50 95 04/06/18 03:01 116/54 96 04/06/18 02:52 100/55 95 04/06/18 02:46 118/56 95 04/06/18 02:34 110/75 95 04/06/18 02:00 97 04/06/18 01:30 110/54 04/06/18 01:00 118/68 97 04/06/18 00:00 130/62 95 04/05/18 23:00 04/05/18 22:47 04/05/18 20:48 94 04/05/18 20:46 04/05/18 19:16 117/63 92 04/05/18 16:06 116/72 04/05/18 16:00 116/72 95 04/05/18 14:05 04/05/18 11:58 95 04/05/18 11:54 122/61 04/05/18 11:53 102/68 04/05/18 11:52 93/59 102/68 122/61 04/05/18 11:51 93/59 Intake and Output 04/05/18 04/06/18 04/06/18 21:59 05:59 13:59 Intake Total 480 300 Output Total 550 951 200 Balance -70 -951 100 Intake: Oral 480 300 Output: Void Amount 550 950 200 # of times incontinent of urine 1 Other: Meal Dinner Percent of Meal Consumed 75% Feeding Ability Independent Urine Appearance Clear Clear Urine Color Light Emmanuelle Light Emmanuelle Urine Odor Normal Stool Size Moderate Stool Color Brown Stool Consistency Soft Formed # Voids 1 # Bowel Movements 1 Weight 154 lb 1.6 oz Medical - DS: Data Labs on day of discharge: Labs from last 24 hours 04/06/18 04/06/18 03:50 03:50 WBC 5.0 RBC 4.09 L Hgb 13.2 L Hct 39.3 L MCV 96.2 MCH 32.3 MCHC 33.6 RDW 14.4 Plt Count 121 L MPV 9.0 Total Counted 100 Seg Neutrophils % 67 Band Neutrophils % 8 Lymphocytes % 12 L Monocytes % (Manual) 11 Reactive Lymphocytes 2 Platelet Estimate Decreased A RBC Morphology Normal Sodium 138 Potassium 3.9 Chloride 101 Carbon Dioxide 28 Anion Gap 9.0 BUN 21 Creatinine 1.1 GFR Calculation 59 Glucose 98 Uric Acid 5.1 Calcium 8.5 L Phosphorus 3.4 Magnesium 2.2 Total Bilirubin 0.4 Direct Bilirubin < 0.2 GGT 14 AST 33 ALT 15 Alkaline Phosphatase 46 Lactate Dehydrogenase 200 Total Protein 5.3 L Albumin 3.2 Globulin 2.1 L Albumin/Globulin Ratio 1.5 Triglycerides 79 Medical - DS: A/P - Patient/Caregiver Discharge Instructions Activity: as per physical therapy, increase activity as tolerated Diet: Low Sodium (2gm) Additional Instructions: Follow-up PCP in 5 days Please Schedule holter monitoring as OP prior to discharge I recommend SNF physician to check CBC BMP UA as a posthospital follow-up in 1 week. Antibiotics for 3 days levaquin Continue fall precautions Continue aggressive PT OT evaluation and treatment at SNF. ST eval and treatment if indicated All meals on chair sitting upright at 90 degrees to prevent aspiration Return to ER if worsening fever chills shortness of breath, diarrhea, bleeding Review risk and side effect profile of medications including antibiotics. Side effect may include mild to severe reaction including rash, diarrhea, cdiff and even which can be prevented by close follow-up with PCP and monitoring for side effects Continue diet and activity as advised Discussed importance of medication adherence Please review medication list with patient prior to discharge Please schedule follow-up with PCP/Providers prior to discharge and provide printouts Prescriptions: Levofloxacin [Levaquin] 750 mg PO DAILY #3 tablet - Problem Maintenance (1) Syncope and collapse Status: Acute - Follow up Plan Follow up with: Jamal Gudino PA-C [Primary Care Provider] - 04/14/18 1:45 pm (Please check in at 1:30) Disposition: Home, Self-Care Prognosis: Good Rehab Potential: Fair I certify that the patient requires SNF services: Yes Overall status at discharge: patient is back to baseline Medical - DS: Qual - VTE Deep Vein Thrombosis/Pulmonary Embolism Present on Admission: No
== END 2018-04-06 13:30 | disposition home or self-care (01) ==
LOC: ED 20:35 → ICU 20:35
PROVIDERS: ADMIT Internal Medicine; ATTEND Internal Medicine